=== PATIENT | male | born 1960 | race Caucasian/White ===

== ENCOUNTER 2017-02-26 08:27 | Emergency (ER) | payer BC ==
--- NOTE | 2017-02-26 08:48 | EDM.PDOC ---
ED HPI GENERAL MEDICAL PROBLEM - General Chief Complaint: Head Injury Stated Complaint: PATIENT HIT HIS HEAD Time Seen by Provider: 02/26/17 09:10 Source of Information: Reports: Patient History Limitations: Reports: No limitations - History of Present Illness INITIAL COMMENTS - FREE TEXT/NARRATIVE: History of present illness: [] Patient was transferred to the emergency room by Dr. Slaughter after evaluation. Patient fell one week ago after tripping over a pallet and hitting his head and face. He had a loss of consciousness and unknown period of time. He has flattening of his zygoma, headaches, visual changes and nausea. Review of systems: As per history of present illness and below otherwise all systems reviewed and negative. Past medical history: As per history of present illness and as reviewed below otherwise noncontributory. Surgical history: As per history of present illness and as reviewed below otherwise noncontributory. Social history: No reported history of drug or alcohol abuse. Family history: As per history of present illness and as reviewed below otherwise noncontributory. Physical exam: General: Well developed, well nourished in NAD HEENT: Atraumatic, normocephalic, pupils reactive, negative for conjunctival pallor or scleral icterus, mucous membranes moist, throat clear, neck supple, nontender, trachea midline. Lungs: Clear to auscultation, breath sounds equal bilaterally, chest nontender. Heart: S1S2, regular, negative for clicks, rubs, or JVD. Abdomen: Soft, nondistended, nontender. Negative for masses or hepatosplenomegaly. Negative for costovertebral tenderness. Pelvis: Stable nontender. Genitourinary: Deferred. Rectal: Deferred. Extremities: Atraumatic, negative for cords or calf pain. Neurovascular unremarkable. Neuro: Awake, alert, oriented. Cranial nerves II through XII unremarkable. Cerebellum unremarkable. Motor and sensory unremarkable throughout. Exam nonfocal. Diagnostics: [] CT head and face shows orbital wall fractures with muscle entrapment. zygomatic arch fracture Therapeutics: [] Impression: [] Orbital wall with muscle entrapment and zygoma fracture on the left Plan: [] Followup Dr. Prakash, call to make an appointment at [phone] Definitive disposition and diagnosis as appropriate pending reevaluation and review of above. Left Face Pain Score (Numeric/FACES): 4 - Related Data Allergies Allergy/AdvReac Type Severity Reaction Status Date / Time No Known Allergies Allergy Verified 02/26/17 08:34 Home Meds: Home Meds Zolpidem Tartrate 1 tab PO BEDTIME 11/08/15 [History] Past Medical History HEENT History: Reports: Impaired vision Other HEENT History: wears glasses/ has upper dentures Other Respiratory History: hx of smoking x 30 years Gastrointestinal History: Reports: Hepatitis, Other (see below) Other Gastrointestinal History: hx of hepatitis C, states he had a liver bx , no results yet. hx of partial colectomy Musculoskeletal History: Reports: Arthritis, Back pain, chronic - Past Surgical History GI Surgical History: Reports: Colon Other GI Surgeries/Procedures: hx of partial colectomy Other Musculoskeletal Surgeries/Procedures:: hx of "discs removed from lower back". HX of fx toes, hx of reattachment of finger Social & Family History - Tobacco Use Smoking Status *Q: Current Every Day Smoker Years of Tobacco use: 20 Packs/Tins Daily: 0.4 - Recreational Drug Use Recreational Drug Use: No Drug Use in Last 12 Months: No ED ROS GENERAL - Review of Systems Review Of Systems: See Below (See history of present illness) ED EXAM, HEAD INJURY - Physical Exam Exam: See Below (See history of present illness) Course - Vital Signs Last Recorded V/S: Last Vital Signs Temp 36.6 C 02/26/17 08:34 Pulse 75 02/26/17 08:34 Resp 16 02/26/17 08:34 BP 141/79 H 02/26/17 08:34 Pulse Ox 96 02/26/17 08:34 Departure - Departure Time of Disposition: 11:14 Disposition: Home, Self-Care 01 Condition: good Clinical Impression: Orbital wall fracture Qualifiers: Encounter type: initial encounter Fracture type: closed Qualified Code(s): S02.80XA - Fracture of other specified skull and facial bones, unspecified side , initial encounter for closed fracture Zygoma fracture Qualifiers: Encounter type: initial encounter Fracture type: closed Laterality: left Qualified Code(s): S02.40FA - Zygomatic fracture, left side, initial encounter for closed fracture - Discharge Information Forms: ED Department Discharge Additional Instructions: The following information is given to patients seen in the emergency department who are being discharged to home. This information is to outline your options for follow-up care. We provide all patients seen in our emergency department with a follow-up referral. The need for follow-up, as well as the timing and circumstances, are variable depending upon the specifics of your emergency department visit. If you don't have a primary care physician on staff, we will provide you with a referral. We always advise you to contact your personal physician following an emergency department visit to inform them of the circumstance of the visit and for follow-up with them and/or the need for any referrals to a consulting specialist. The emergency department will also refer you to a specialist when appropriate. This referral assures that you have the opportunity for follow-up care with a specialist. All of these measure are taken in an effort to provide you with optimal care, which includes your follow-up. Under all circumstances we always encourage you to contact your private physician who remains a resource for coordinating your care. When calling for follow-up care, please make the office aware that this follow-up is from your recent emergency room visit. If for any reason you are refused follow-up, please contact the [facility] Emergency Department at and asked to speak to the emergency department charge nurse. Followup with , call for appointment today at [phone]. Return if any symptoms change or worsen.
--- NOTE | 2017-02-26 10:40 | CT ---
EXAMINATION: Non contrast CT head and facial bones. Coronal and sagittal reformats. HISTORY: Fall FINDINGS: Head: No evidence of intra or extra axial hemorrhage, mass, midline shift, hydrocephalus or edema. Mild periventricular and subcortical white matter hypodensities. No hypoattenuation changes in the m ajor vascular territories to suggest acute infarct. No abnormal intracranial calcifications are det ected. No evidence of substantial vascular calcifications. Pituitary fossa appears unremarkable. The calvarium is intact. No evidence of skull fracture. Facial bones: There is a comminuted impacted left zygomaticomaxillary fracture. There is impression of fragments into the maxillary sinus with hemorrhage within the left maxillary sinus. There is als o impaction of the left lateral orbital wall/zygomatic junction into the lateral aspect of the orbit . This likely represents impingement on the underlying ocular musculature. There is no evidence of i ntraorbital hemorrhage. There is a mildly displaced fracture along the inferior orbital wall without herniation of intraorbital structures. The lamina papyracea appear intact. The mandible and maxilla appear intact. There is mucosal thickening within the right maxillary sinus. There is mild rightwar d deviation of the nasal septum. The nasal bones appear intact. The mastoid air cells and middle ear s are clear. The pterygoid plates are intact. IMPRESSION: 1. Comminuted and displaced left zygomaticomaxillary fracture with impression of the lateral orbital wall into the lateral aspect of the orbit. This likely causes impingement on the underlying lateral rectus musculature. 2. Fractures are noted along the infraorbital wall and lateral maxillary wall. No herniation of intr aorbital structures. 3. Hemorrhage within the left maxillary sinus. 4. Mild small vessel ischemic changes. 5. No acute intracranial findings.
[2017-02-26 11:37] VITALS: BP 132/78
== END 2017-02-26 11:35 | disposition home or self-care (01) ==
LOC: MW.ED 08:27
DX: S02.82XA Fracture of other specified skull and facial bones, left side, initial encounter for closed fracture (principal); S02.40FA Zygomatic fracture, left side, initial encounter for closed fracture; M19.90 Unspecified osteoarthritis, unspecified site; F17.210 Nicotine dependence, cigarettes, uncomplicated; W18.09XA Striking against other object with subsequent fall, initial encounter
CPT/HCPCS: 70450; 70450-26; 70486; 70486-26; 99283; 99283-25

== ENCOUNTER 2017-03-05 10:56 | Day surgery (SDC) | payer BC ==
[~2017-03-05 10:56] MED LIST: Bupivacaine 0.25%/EPINEPHrine 1:200,000 10 ML SDV INJECT ONE; Bupivacaine 0.25%/EPINEPHrine 1:200,000 10 ML SDV ONE; Dexamethasone/Tobramycin 0.1-0.3% Ophth Oint 3.5 GM Tube EYEBOTH SCH; Lactated Ringers 1,000 ML IV SCH
[2017-03-05] MEDS ORDERED: ceFAZolin 2 GM in Premix Bag 1 BAG IV ONE (11:00)
[2017-03-05] MEDS ORDERED: Gelatin Sponge,Absorbable 12-7 mm Sponge TOP ONE (11:34)
--- NOTE | 2017-03-05 11:58 | PCM.PREANE ---
Preanesthetic Assessment - Anesthesia/Transfusion/Family Hx Anesthesia History: Prior Anesthesia Without Reaction Family History of Anesthesia Reaction: No Transfusion History: No Prior Transfusion(s) Intubation History: Unknown - Review of Systems General: No Symptoms Pulmonary: No Symptoms Cardiovascular: No Symptoms Gastrointestinal: No symptoms Neurological: No Symptoms Other: Reports: None - Physical Assessment NPO Status Date: 03/05/17 NPO Status Time: 05:00 O2 Sat by Pulse Oximetry: 97 Respiratory Rate: 16 Vital Signs: Last Vital Signs Temp 37.0 C 03/05/17 11:12 Pulse 71 03/05/17 11:12 Resp 16 03/05/17 11:12 BP 140/82 03/05/17 11:12 Pulse Ox 97 03/05/17 11:12 Height: 1.68 m Weight: 68.039 kg ASA Class: 2 Mental Status: Alert & Oriented x3 Airway Class: Mallampati = 2 Dentition: Reports: Dentures (upper) Thyro-Mental Finger Breadths: 3 Mouth Opening Finger Breadths: 2 ROM/Head Extension: Full Lungs: Clear to auscultation, Normal respiratory effort Cardiovascular: Regular Rate, Regular Rhythm - Allergies Allergies/Adverse Reactions: Allergies Allergy/AdvReac Type Severity Reaction Status Date / Time No Known Allergies Allergy Verified 02/26/17 08:34 - Blood Blood Available: No - Anesthesia Plan Pre-Op Medication Ordered: None - Acknowledgements Anesthesia Type Planned: General Anesthesia Pt an Appropriate Candidate for the Planned Anesthesia: Yes Alternatives and Risks of Anesthesia Discussed w Pt/Guardian: Yes Pt/Guardian Understands and Agrees with Anesthesia Plan: Yes PreAnesthesia Questionnaire HEENT History: Reports: Impaired Vision Other HEENT History: wears glasses/ has upper dentures, presently has orbital fx Other Respiratory History: hx of smoking x 30 years Gastrointestinal History: Reports: Hepatitis, Other (See Below) Other Gastrointestinal History: hx of hepatitis C, (states has been treated for this) hx of partial colectomy, Musculoskeletal History: Reports: Arthritis, Back Pain, Chronic Other Musculoskeletal History: occasional back pain in the mornings Neurological History: Reports: None Psychiatric History: - Infectious Disease History Infectious Disease History: Reports: Hepatitis C - Past Surgical History Head Surgeries/Procedures: Reports: None GI Surgical History: Reports: Colon, Hernia, Inguinal Other GI Surgeries/Procedures: hx of partial colectomy Neurological Surgical History: Reports: Lumbar Spine Other Neurological Surgeries/Procedures: hx back surgery Musculoskeletal Surgical History: Reports: Arthroscopic Procedure (left shoulder ) Other Musculoskeletal Surgeries/Procedures:: hx of "discs removed from lower back". HX of fx toes, hx of reattachment of finger - SUBSTANCE USE Smoking Status *Q: Current Every Day Smoker (down to 1/2 ppd) Tobacco Use Within Last Twelve Months: Cigarettes Second Hand Smoke Exposure: Yes Days Per Week of Alcohol Use: 2 Number of Drinks Per Day: 6 Total Drinks Per Week: 12 Recreational Drug Use History: No - HOME MEDS Home Medications: Home Meds Zolpidem Tartrate 1 tab PO BEDTIME 11/08/15 [History] Amoxicillin/Potassium Clav [Amox-Clav 875-125 mg Tablet] 1 tab PO BID 03/03/17 [ History] Hydrocodone/Acetaminophen [Hydrocodon-Acetaminophen 5-325] 1 tab PO ASDIRECTED PRN 03/03/17 [History] - CURRENT (IN HOUSE) MEDS Current Meds: Current Medications Hydrocodone Bitart/Acetaminophen ([place] 325-5 Mg) 1 tab PO Q4H PRN PRN Reason: Pain Bacitracin (Bacitracin Oint) 1 gm TOP TID HECTOR Diphenhydramine HCl (Benadryl) 25 mg PO Q4H PRN PRN Reason: Itching Lactated Ringer's (Ringers, Lactated) 1,000 mls @ 125 mls/hr IV ASDIRECTED HECTOR Last Admin: 03/05/17 11:14 Dose: 125 mls/hr Ibuprofen (Motrin) 800 mg PO Q6H PRN PRN Reason: Pain Ondansetron HCl (Zofran) 4 mg IVPUSH Q6H PRN PRN Reason: Nausea/Vomiting Tobramycin/Dexamethasone (Tobradex Ophth Oint) 1 gm EYEBOTH Q4H [facility] Discontinued Medications Bacitracin (Bacitracin Ophth Oint) Confirm Administered Dose 3.5 gm .ROUTE .STK- MED ONE Stop: 03/05/17 11:35 Bupivacaine HCl/Epinephrine Bitart (Marcaine 0.25%/Epinephrine 1:200,000) 20 ml INJECT ONETIME ONE Stop: 03/05/17 08:57 Bupivacaine HCl/Epinephrine Bitart (Marcaine 0.25%/Epinephrine 1:200,000) Confirm Administered Dose 60 ml .ROUTE .STK-MED ONE Stop: 03/05/17 07:21 Gelatin (Gelfoam 12-7 Mm) Confirm Administered Dose 1 each TOP .STK-MED ONE Stop: 03/05/17 11:35 Cefazolin Sodium/Dextrose 2 gm (/ Premix) 50 mls @ 100 mls/hr IV ONETIME ONE Stop: 03/05/17 11:29
[2017-03-05] MEDS ORDERED: diphenhydrAMINE 25 MG Cap PO PRN (12:00)
[2017-03-05] MEDS ORDERED: Rocuronium 10 MG/ML 10 ML Syringe ONE (12:45)
[2017-03-05] MEDS ORDERED: Ondansetron 4 MG/2 ML SDV ONE ×3 (12:45→16:04)
[2017-03-05] MEDS ORDERED: Propofol 200 MG/20 ML SDV ONE (12:45)
[2017-03-05] MEDS ORDERED: Lidocaine 2% 5 ML SDV ONE (12:45)
[2017-03-05] MEDS ORDERED: Neostigmine Methylsulfate 1 MG/ML 5 ML Syringe ONE (12:45)
[2017-03-05] MEDS ORDERED: fentaNYL 250 MCG/5 ML SDV ONE ×2 (12:46→14:35)
[2017-03-05] MEDS ORDERED: Midazolam 1 MG/ML 2 ML SDV ONE (12:46)
[2017-03-05] MEDS ORDERED: Sodium Chloride 0.9% 20 ML ONE (12:48)
[2017-03-05] MEDS ORDERED: ceFAZolin 1 GM Vial ONE (12:48)
[2017-03-05] MEDS ORDERED: Succinylcholine/Normal Saline 200 MG/10 ML Syringe ONE (14:03)
[2017-03-05] MEDS ORDERED: Mineral Oil/Petrolatum Ophth Oint 3.5 GM Tube ONE (14:11)
[2017-03-05] MEDS ORDERED: Phenylephrine/Normal Saline 100 MCG/ML 10 ML Syringe ONE (14:17)
[2017-03-05] MEDS ORDERED: ePHEDrine 50 MG/ML SDV ONE (14:21)
[2017-03-05] MEDS ORDERED: fentaNYL 100 MCG/2 ML SDV IVPUSH PRN ×2 (14:37→16:28)
[2017-03-05] MEDS ORDERED: Dexamethasone/Tobramycin 0.1-0.3% Ophth Oint 3.5 GM Tube ONE (14:56)
[2017-03-05] MEDS ORDERED: HYDROmorphone 2 MG/ML Syringe ONE (15:32)
[2017-03-05] MEDS ORDERED: Labetalol 5 MG/ML 5 ML Syringe ONE (16:48)
[2017-03-05] MEDS: HYDROmorphone 2 MG/ML Syringe IVPUSH ONE ×2 (16:55→17:00)
--- NOTE | 2017-03-05 17:18 | PCM.POSTAN ---
POST ANESTHESIA ASSESSMENT - MENTAL STATUS Mental Status: alert, oriented - RESPIRATORY Respiratory Status: respiratory rate WNL, airway patent, O2 saturation stable, supplemental oxygen (O2) Free Text/Narrative:: O2 via nasal canula - CARDIOVASCULAR CV Status: pulse rate WNL, blood pressure stable - GASTROINTESTINAL GI Status: no symptoms - PAIN Pain Score: 4 - POST OP HYDRATION Hydration Status: adequate & stable - OBSERVATIONS Free Text/Narrative:: admit for pain control
--- NOTE | 2017-03-05 17:20 | PCM.OPNOTE ---
- General Post-Op/Procedure Note Date of Surgery/Procedure: 03/05/17 Operative Procedure(s): open reduction internal fixation of left ZMC fracture ( lateral orbit, orbital floor and rim, maxillary buttress) Pre Op Diagnosis: Left ZMC fracture Post-Op Diagnosis: Same Anesthesia Technique: General ET tube, Local Primary Surgeon: Charley Kohler Seamless Tube Drawer: Randi Juarez Complications: None Condition: Good
[2017-03-05] MEDS: Acetaminophen/HYDROcodone 325-5 MG Tab PO PRN ×2 (18:50→22:51)
[2017-03-05] MEDS: Ondansetron 4 MG/2 ML SDV IVPUSH PRN (19:14)
[2017-03-05] MEDS: Ibuprofen 800 MG Tab PO PRN (20:03)
[2017-03-05] MEDS: Bacitracin Oint 28.35 GM Tube TOP SCH (21:25)
[2017-03-05] MEDS ORDERED: Acetaminophen/HYDROcodone 325-5 MG Tab PO PRN (22:53)
[2017-03-06] MEDS: Ibuprofen 800 MG Tab PO PRN (02:16)
[2017-03-06] MEDS: Ondansetron 4 MG/2 ML SDV IVPUSH PRN (05:25)
[2017-03-06] MEDS: Bacitracin Oint 28.35 GM Tube TOP SCH (05:27)
--- NOTE | 2017-03-06 07:02 | PCM48HPAN ---
Post Anesthesia Note - EVALUATION WITHIN 48HRS OF ANESTHETIC Vital Signs in Normal Range: Yes Patient Participated in Evaluation: Yes Respiratory Function Stable: Yes Airway Patent: Yes Cardiovascular Function Stable: Yes Hydration Status Stable: Yes Pain Control Satisfactory: Yes Nausea and Vomiting Control Satisfactory: Yes Mental Status Recovered: Yes
[2017-03-06 08:01] VITALS: BP 133/64
--- NOTE | 2017-03-06 08:34 | PCM.PN ---
- General Info Date of Service: 03/06/17 Admission Dx/Problem (Free Text): s/p ZMC fracture ORIF - POD 1 Not taking much for meds this am due to upset stomach. Didn't have much for dinner last night because kitchen was closed after 9pm. Otherwise eating now and feeling ok. Functional Status: Reports: pain controlled, tolerating diet, ambulating, urinating Pain Score: 5 - Review of Systems General: Reports: No Symptoms HEENT: Reports: no symptoms Pulmonary: Reports: no symptoms Gastrointestinal: Reports: Nausea. Denies: Vomiting Skin: Reports: bruising Neurological: Reports: No Symptoms - Patient Data Vitals - most recent: Last Vital Signs Temp 97.9 F 03/06/17 08:00 Pulse 52 L 03/06/17 08:00 Resp 18 03/06/17 08:00 BP 133/64 03/06/17 08:00 Pulse Ox 93 L 03/06/17 08:00 Weight - most recent: 150 lb I&O - last 24 hours: Intake & Output 03/05/17 03/06/17 03/06/17 23:59 07:59 15:59 Intake Total 2100 1080 Output Total 125 Balance 2100 955 Med Orders - Current: Current Medications Hydrocodone Bitart/Acetaminophen ([place] 325-5 Mg) 1 - 2 tab PO Q4H PRN PRN Reason: Pain Last Admin: 03/06/17 02:52 Dose: 2 tab Bacitracin (Bacitracin Oint) 1 gm TOP TID HECTOR Last Admin: 03/06/17 05:27 Dose: 1 applic Diphenhydramine HCl (Benadryl) 25 mg PO Q4H PRN PRN Reason: Itching Fentanyl (Sublimaze) 50 mcg IVPUSH Q5M PRN PRN Reason: Pain (severe 7-10) Stop: 03/06/17 14:37 Fentanyl (Sublimaze) 50 mcg IVPUSH Q5M PRN PRN Reason: Pain (severe 7-10) Stop: 03/06/17 16:28 Ibuprofen (Motrin) 800 mg PO Q6H PRN PRN Reason: Pain Last Admin: 03/06/17 02:16 Dose: 800 mg Ondansetron HCl (Zofran) 4 mg IVPUSH Q6H PRN PRN Reason: Nausea/Vomiting Last Admin: 03/06/17 05:25 Dose: 4 mg Tobramycin/Dexamethasone (Tobradex Ophth Oint) 1 gm EYEBOTH Q4H [facility] Last Admin: 03/05/17 21:17 Dose: Not Given Discontinued Medications Hydrocodone Bitart/Acetaminophen ([place] 325-5 Mg) 1 tab PO Q4H PRN PRN Reason: Pain Last Admin: 03/05/17 22:51 Dose: 2 tab Bacitracin (Bacitracin Ophth Oint) Confirm Administered Dose 3.5 gm .ROUTE .STK- MED ONE Stop: 03/05/17 11:35 Bupivacaine HCl/Epinephrine Bitart (Marcaine 0.25%/Epinephrine 1:200,000) 20 ml INJECT ONETIME ONE Stop: 03/05/17 08:57 Bupivacaine HCl/Epinephrine Bitart (Marcaine 0.25%/Epinephrine 1:200,000) Confirm Administered Dose 60 ml .ROUTE .STK-MED ONE Stop: 03/05/17 07:21 Cefazolin Sodium (Ancef) Confirm Administered Dose 2 gm .ROUTE .STK-MED ONE Stop: 03/05/17 12:49 Ephedrine Sulfate (Ephedrine Sulfate) Confirm Administered Dose 50 mg .ROUTE .STK-MED ONE Stop: 03/05/17 14:22 Fentanyl (Sublimaze) Confirm Administered Dose 250 mcg .ROUTE .STK-MED ONE Stop: 03/05/17 12:47 Fentanyl (Sublimaze) Confirm Administered Dose 250 mcg .ROUTE .STK-MED ONE Stop: 03/05/17 14:36 Gelatin (Gelfoam 12-7 Mm) Confirm Administered Dose 1 each TOP .STK-MED ONE Stop: 03/05/17 11:35 Glycopyrrolate () Confirm Administered Dose 1 mg .ROUTE .STK-MED ONE Stop: 03/05/17 12:46 Hydromorphone HCl (Dilaudid) Confirm Administered Dose 2 mg .ROUTE .STK-MED ONE Stop: 03/05/17 15:33 Hydromorphone HCl (Dilaudid) 0 mg IVPUSH ONETIME ONE Stop: 03/05/17 16:29 Last Admin: 03/05/17 17:00 Dose: 1 mg Lactated Ringer's (Ringers, Lactated) 1,000 mls @ 125 mls/hr IV ASDIRECTED [facility] Last Admin: 03/05/17 11:14 Dose: 125 mls/hr Cefazolin Sodium/Dextrose 2 gm (/ Premix) 50 mls @ 100 mls/hr IV ONETIME ONE Stop: 03/05/17 11:29 Last Admin: 03/05/17 21:43 Dose: Not Given Sodium Chloride (Normal Saline) Confirm Administered Dose 20 mls @ as directed .ROUTE .STK-MED ONE Stop: 03/05/17 12:49 Labetalol HCl (Normodyne) Confirm Administered Dose 25 mg .ROUTE .STK-MED ONE Stop: 03/05/17 16:49 Lidocaine (Xylocaine-Mpf 2%) Confirm Administered Dose 5 ml .ROUTE .STK-MED ONE Stop: 03/05/17 12:46 Midazolam HCl (Versed 1 Mg/Ml) Confirm Administered Dose 2 mg .ROUTE .STK-MED ONE Stop: 03/05/17 12:47 Mineral Oil/White Petrolatum (Lacri-Lube S.O.P Oint) Confirm Administered Dose 3.5 gm .ROUTE .STK-MED ONE Stop: 03/05/17 14:12 Neostigmine Methylsulfate (Neostigmine) Confirm Administered Dose 5 mg .ROUTE .STK-MED ONE Stop: 03/05/17 12:46 Ondansetron HCl (Zofran) Confirm Administered Dose 4 mg .ROUTE .STK-MED ONE Stop: 03/05/17 12:46 Ondansetron HCl (Zofran) Confirm Administered Dose 4 mg .ROUTE .STK-MED ONE Stop: 03/05/17 14:54 Ondansetron HCl (Zofran) Confirm Administered Dose 4 mg .ROUTE .STK-MED ONE Stop: 03/05/17 16:05 Phenylephrine HCl (Phenylephrine In Ns 100 Mcg/Ml) Confirm Administered Dose 1 mg .ROUTE .STK-MED ONE Stop: 03/05/17 14:18 Propofol (Diprivan 20 Ml) Confirm Administered Dose 200 mg .ROUTE .STK-MED ONE Stop: 03/05/17 12:46 Rocuronium [place] (Zemuron) Confirm Administered Dose 100 mg .ROUTE .STK-MED ONE Stop: 03/05/17 12:46 Succinylcholine Chloride (Succinylcholine In Ns Pf) Confirm Administered Dose 200 mg .ROUTE .STK-MED ONE Stop: 03/05/17 14:04 Tobramycin/Dexamethasone (Tobradex Ophth Oint) Confirm Administered Dose 3.5 gm .ROUTE .STK-MED ONE Stop: 03/05/17 14:57 - Exam General: alert, oriented, cooperative HEENT: Pupils equal, Pupils reactive, EOMI, Other (left eye swelling and eye is slightly higher than the right. Otherwise EOM intact wihtout any signs of entrapment. ) Lungs: Clear to auscultation Cardiovascular: Regular Rate, Regular Rhythm Abdomen: soft Extremities: no edema Skin: warm, dry Wound/Incisions: healing well, dressing dry and intact, no drainage Neurological: no new focal deficit Psy/Mental Status: alert, normal affect - Problem List & Annotations (1) Orbital wall fracture SNOMED Code(s): 20652843 Code(s): S02.80XA - FX OTH SKULL AND FACIAL BONES, UNSPECIFIED SIDE, INIT Status: Acute Current Visit: No Qualifiers: Encounter type: initial encounter Fracture type: closed Qualified Code(s) : S02.80XA - Fracture of other specified skull and facial bones, unspecified side, initial encounter for closed fracture (2) Zygoma fracture SNOMED Code(s): 456501332 Code(s): S02.402A - ZYGOMATIC FRACTURE, UNSPECIFIED SIDE, INIT Status: Acute Current Visit: No Qualifiers: Encounter type: initial encounter Fracture type: closed Laterality: left Qualified Code(s): S02.40FA - Zygomatic fracture, left side, initial encounter for closed fracture - Problem List Review Problem List Initiated/Reviewed/Updated: Yes - My Orders Last 24 Hours: My Active Orders 03/05/17 08:00 Bacitracin [Bacitracin Oint] 1 gm TOP TID 03/05/17 08:56 Patient Status [ADT] Routine Ibuprofen [Motrin] 800 mg PO Q6H PRN Sequential Compression Device [OM.PC] Routine 03/05/17 08:59 Antiembolic Devices [RC] PER UNIT ROUTINE 03/05/17 09:00 Dexamethasone/Tobramycin [Tobradex Ophth Oint] 1 gm EYEBOTH Q4H 03/05/17 11:00 Ondansetron [Zofran] 4 mg IVPUSH Q6H PRN 03/05/17 12:00 diphenhydrAMINE [Benadryl] 25 mg PO Q4H PRN 03/05/17 17:22 Cooling Warming Measures [RC] ASDIRECTED Ice Pack [Ice Therapy] [OM.PC] Routine 03/05/17 18:00 Communication Order [RC] DAILY 03/05/17 22:53 Acetaminophen/HYDROcodone [[place] 325-5 MG] 1 - 2 tab PO Q4H PRN 03/05/17 Dinner General [Regular Diet] [DIET] 03/06/17 08:30 Ready for Discharge [RC] PER UNIT ROUTINE - Assessment Assessment:: POD 1 healing as expected from ZMC reduction and fixation on the left. - Plan Plan:: home today. Oral antibiotics. Oral pain medication. Resume home meds. Instructions and activity as per discharge instructions. No driving while taking narcotics. Follow up Friday for suture removal.
--- NOTE | 2017-03-11 06:08 | OR ---
SURGEON: JESSICA NDIAYE MD DATE OF PROCEDURE: PREOPERATIVE DIAGNOSIS: Left ZMC fracture. POSTOPERATIVE DIAGNOSIS: Left ZMC fracture. PROCEDURE: Open reduction and internal fixation of left zygomatic maxillary complex fracture with plate fixation of the lateral orbital floor and rim and maxillary buttress. MANUFACTURING TECHNOLOGY ANALYST: Randi Juarez PA-C. ANESTHESIA: General ET tube with local anesthesia augmentation. INDICATIONS: Mr. Chanel is a 56-year-old gentleman, who unfortunately had a fall and he has an impacted left zygomaticomaxillary complex fracture. Risks and benefits of repair were discussed with him. He had a delayed presentation and thus we discussed the inability to obtain complete reduction if the fracture segment move appropriately. He understands this. There are no signs of entrapment though the lateral rectus muscle is very close to the lateral fracture. He is able to move his eyes in all directions, but he does have significant diplopia with superior and inferior gaze. We discussed risks and benefits, and I do think it is better for him considering the significant amount of infection that he would have this reduced at this time. He was in agreement to proceed. Risks were including, but not limited to, bleeding, infection, damage to underlying or overlying structures, possible need for future interventions and possible scarring and possible continued visual strip disturbances. He would like to proceed. PROCEDURE IN DETAIL: After informed consent was obtained and placed on the chart, the patient was brought to the operating theater and laid in the position. After adequate general anesthetic was obtained, the area was prepped and draped in a normal fashion. A time-out was completed to confirm side and site. Attention was then paid to the lateral orbital rim incision. This was made dissecting down onto the orbital rim using a 15 blade first through the skin and then spreading through the subcutaneous tissue. The lateral orbit was located and the two fracture segments were reduced using a bone clamp. A Argueta Cole screw was placed in the zygoma using a stab incision in order to augment our reduction. Once this was completed, an appropriate reduction was appreciated to the lateral orbit and lateral orbital ball; a upper midface curved 10- hole curved plate from the [email or web address] midface set was placed, [id number] and self drilling screws were used to secure this in place. Once this was secured attention was then paid to the left orbital floor and orbital rim. A mid lid incision was made dissected stairstep through the muscle and the rim was then located taking care not to disrupt the septum. Subperiosteal dissection was then carried onto the zygomatic refusing to the orbital rim and the fracture segment was located medially. Using direct visualization and the Argueta Cole screw appropriate reduction was appreciated here. The orbital floor had a small gap and thus a [employer] Titan surgical implant 3D orbital floor left small plate, reference number 66260, lot number [id number], was then placed at appropriate contour in the orbital floor and rim. Self-drilling 3 and 4 mm screws were placed to secure this in position. Once adequately secured and contoured, attention was paid to copiously irrigation of both the lateral orbital rim incision and the orbital floor incision and the orbital floor was closed using deep Monocryl stitches for the periosteum and muscle in a running 5-0 Prolene for the skin. The lateral orbital rim was then closed using 4-0 Monocryl stitches using for the deep layers of muscle and then a 5-0 Prolene for the skin. These were both copiously irrigated prior to closure. Attention was then paid to the maxillary buttress and intraoral incision was completed in the superior gingival buccal sulcus. The maxillary buttress was reapproximated and had a step-off approximately 1 mm. We could not obtain better reduction of the zygomaticomaxillary complex fracture segment and thus this was deemed acceptable. An L shaped upper midface 8-hole plate was placed with one screw distally and three screws proximally procedure is position using the self tapping screw. Once this was secured, attention was then paid to copious irrigation of the area sucking out of the sinus using suction and then closure of the intraoral incision using deep Monocryl stitches and a watertight closure using a 5-0 chromic stitch in the gingival buccal sulcus. He tolerated this well. All counts and needles were correct at the end of the case and each wound was dressed with antibiotic ointment. The patient tolerated this well and will be maintained in the hospital for close followup. The orbital muscles were placed in traction in all directions and ensured that there was no entrapment. FOLLOWUP INSTRUCTIONS: The patient will stay in the hospital overnight and will be monitored closely. HEGGTHE / MODL /[id number] JOSE A
== END 2017-03-06 08:55 | disposition home or self-care (01) ==
LOC: MW.SDS 10:56 → MW.MS 17:41 → MW.SDS 03-06 08:55
PROVIDERS: ATTEND Plastic Surgery
DX: S02.40FA Zygomatic fracture, left side, initial encounter for closed fracture (principal); S02.80XA Fracture of other specified skull and facial bones, unspecified side, initial encounter for closed fracture; M19.90 Unspecified osteoarthritis, unspecified site; G89.29 Other chronic pain; M54.9 Dorsalgia, unspecified; M75.101 Unspecified rotator cuff tear or rupture of right shoulder, not specified as traumatic; F17.210 Nicotine dependence, cigarettes, uncomplicated; G47.00 Insomnia, unspecified; Z79.899 Other long term (current) drug therapy; Z90.49 Acquired absence of other specified parts of digestive tract; Z98.890 Other specified postprocedural states; X58.XXXA Exposure to other specified factors, initial encounter
CPT/HCPCS: 21365; A9270; C1713; J0690; J1170; J2250; J2405; J3010; J7120; 00190; J2704

== ENCOUNTER 2017-06-11 06:37 | Day surgery (SDC) | payer BC ==
--- NOTE | 2017-06-11 07:09 | PCM.PREANE ---
Preanesthetic Assessment - Anesthesia/Transfusion/Family Hx Anesthesia History: Prior Anesthesia Without Reaction Family History of Anesthesia Reaction: No Transfusion History: No Prior Transfusion(s) Intubation History: Unknown - Review of Systems General: No Symptoms Pulmonary: No Symptoms Cardiovascular: No Symptoms Gastrointestinal: No Symptoms Neurological: No Symptoms Other: Reports: None - Physical Assessment Height: 1.68 m Weight: 68.039 kg ASA Class: 3 Mental Status: Alert & Oriented x3 Airway Class: Mallampati = 2 Dentition: Reports: Dentures (upper) Thyro-Mental Finger Breadths: 3 Mouth Opening Finger Breadths: 2 ROM/Head Extension: Limited/Partial Lungs: Clear to Auscultation, Normal Respiratory Effort Cardiovascular: Regular Rate, Regular Rhythm - Allergies Allergies/Adverse Reactions: Allergies Allergy/AdvReac Type Severity Reaction Status Date / Time No Known Allergies Allergy Verified 02/26/17 08:34 - Blood Blood Available: No - Anesthesia Plan Pre-Op Medication Ordered: None - Acknowledgements Anesthesia Type Planned: General Anesthesia Pt an Appropriate Candidate for the Planned Anesthesia: Yes Alternatives and Risks of Anesthesia Discussed w Pt/Guardian: Yes Pt/Guardian Understands and Agrees with Anesthesia Plan: Yes PreAnesthesia Questionnaire HEENT History: Reports: Impaired Vision Other HEENT History: wears glasses/ has upper dentures, presently has orbital fx Other Respiratory History: hx of smoking x 30 years Gastrointestinal History: Reports: Hepatitis, Other (See Below) Other Gastrointestinal History: hx of hepatitis C, (states has been treated for this) hx of partial colectomy, Genitourinary History: Reports: None Musculoskeletal History: Reports: Arthritis, Back Pain, Chronic, Other (See Below) (s/p right rotator cuff repair) Other Musculoskeletal History: occasional back pain in the mornings Neurological History: Reports: Other (See Below) (insomnia) Psychiatric History: - Infectious Disease History Infectious Disease History: Reports: Hepatitis C - Past Surgical History HEENT Surgical History: Reports: Tonsillectomy, Other (See Below) (ORIF rt. zygomatic arch depressed fracture) GI Surgical History: Reports: Hernia Repair/Other, Other (See Below) (partial colectomy) Male Surgical History: Reports: Vasectomy Musculoskeletal Surgical History: Reports: Arthroscopic Procedure Other Musculoskeletal Surgeries/Procedures:: hx of "discs removed from lower back". HX of fx toes, hx of reattachment of finger - SUBSTANCE USE Smoking Status *Q: Current Every Day Smoker (down to one ppd) Tobacco Use Within Last Twelve Months: Cigarettes Second Hand Smoke Exposure: Yes Days Per Week of Alcohol Use: 2 Number of Drinks Per Day: 6 Total Drinks Per Week: 12 Recreational Drug Use History: No - HOME MEDS Home Medications: Home Meds Zolpidem Tartrate 1 tab PO BEDTIME 11/08/15 [History] - CURRENT (IN HOUSE) MEDS Current Meds: Current Medications Bupivacaine HCl/Epinephrine Bitart (Marcaine 0.25%/Epinephrine 1:200,000) 20 ml INJECT ONETIME ONE Stop: 06/11/17 08:01 Lactated Ringer's (Ringers, Lactated) 1,000 mls @ 125 mls/hr IV ASDIRECTED HECTOR Last Admin: 06/11/17 07:03 Dose: 125 mls/hr Cefazolin Sodium/Dextrose 2 gm (/ Premix) 50 mls @ 100 mls/hr IV ONETIME ONE Stop: 06/11/17 08:29
[2017-06-11] MEDS ORDERED: Propofol 200 MG/20 ML SDV ONE (07:15)
[2017-06-11] MEDS ORDERED: Midazolam 1 MG/ML 2 ML SDV ONE (07:15)
[2017-06-11] MEDS ORDERED: Ondansetron 4 MG/2 ML SDV ONE (07:15)
[2017-06-11] MEDS ORDERED: Bupivacaine 0.25%/EPINEPHrine 1:200,000 10 ML SDV ONE (07:15)
[2017-06-11] MEDS ORDERED: Lidocaine 2% 5 ML SDV ONE (07:15)
[2017-06-11] MEDS ORDERED: HYDROmorphone 2 MG/ML Syringe ONE (07:15)
[2017-06-11] MEDS ORDERED: fentaNYL 100 MCG/2 ML SDV ONE (07:15)
[2017-06-11] MEDS ORDERED: Bupivacaine 0.25%/EPINEPHrine 1:200,000 10 ML SDV INJECT ONE (08:00)
[2017-06-11] MEDS ORDERED: ceFAZolin 2 GM in Premix Bag 1 BAG IV ONE (08:00)
[2017-06-11] MEDS ORDERED: Lactated Ringers 1,000 ML IV SCH (08:00)
[2017-06-11] MEDS ORDERED: fentaNYL 100 MCG/2 ML SDV IVPUSH PRN (08:37)
[2017-06-11] MEDS ORDERED: Dexamethasone/Tobramycin 0.1-0.3% Ophth Oint 3.5 GM Tube ONE (09:11)
[2017-06-11] MEDS ORDERED: Phenylephrine/Normal Saline 100 MCG/ML 10 ML Syringe ONE (09:11)
[2017-06-11 11:12] VITALS: BP 140/84
--- NOTE | 2017-06-12 16:10 | PCM.OPNOTE ---
- General Post-Op/Procedure Note Date of Surgery/Procedure: 06/11/17 Operative Procedure(s): removal of left eye plates x 2 Pre Op Diagnosis: painful hardware left eye Post-Op Diagnosis: Same Anesthesia Technique: General LMA Primary Surgeon: Charley Kohler Tailer Out: Randi Juarez Complications: None Condition: Good Free Text/Narrative:: [id number]
--- NOTE | 2017-06-12 21:47 | OR ---
SURGEON: JESSICA NDIAYE MD DATE OF PROCEDURE: 06/11/2017 PREOPERATIVE DIAGNOSIS: Left orbital hardware causing pain. POSTOPERATIVE DIAGNOSIS: Left orbital hardware causing pain. PROCEDURE: Removal of left lateral orbital rim plate and left orbital floor plate due to pain. INDICATIONS: Mr. Jamie Chanel is a 56-year-old gentleman with an orbital floor plate and left orbital rim plate that are causing pain. Risks and benefits of removal were discussed with him and he is in agreement to proceed. Risks were including, but not limited to, bleeding, infection, damage to underlying or overlying structures, possible need for future interventions and possible scarring. PROCEDURE IN DETAIL: After informed consent was obtained and placed on the chart, the patient was brought to the operating theater and laid in supine position. After adequate local MAC anesthesia was obtained, the area was prepped draped in normal fashion and a time-out was completed to confirm side and site. Attention was then paid to the left lateral orbit incision and dissection was carried down through the skin and subcutaneous tissues using a knife and Bovie electrocautery. The plate was localized and the screws were removed. Plate was removed easily and these were sent for pathology. Meticulous hemostasis was obtained. The wound was closed using deep Monocryl stitches and a running 4-0 for the skin. This was dressed with Steri-Strips. Attention was then paid to the orbital floor plate and a subtarsal incision was made again through the previous incision and dissection was carried down stepwise through the muscle and septum in order to localize the plate. The plate was localized easily and freed with a [place] elevator and removed with minimal difficulty. There was some vascular ingrowth which was easily hemostased with Bovie electrocautery. Once adequate hemostasis was obtained, the wound was then closed in layered fashion with deep Monocryl stitches for the septum, Monocryl stitches for the muscle, and a running 4-0 Monocryl for the skin. He tolerated this well and this was dressed with the gauze dressing. The plates were sent for pathology and all counts and needles were correct at the end of the case. FOLLOWUP INSTRUCTIONS: The patient will see us in clinic in approximately 1 week, sooner if any problems, questions, or concerns. HEGGTSALAS / ARSH /[id number]
== END 2017-06-11 10:35 | disposition home or self-care (01) ==
LOC: MW.SDS 06:37
PROVIDERS: ATTEND Plastic Surgery
DX: T84.84XA Pain due to internal orthopedic prosthetic devices, implants and grafts, initial encounter (principal); S02.40FD Zygomatic fracture, left side, subsequent encounter for fracture with routine healing; Z79.899 Other long term (current) drug therapy; Z98.890 Other specified postprocedural states; Z90.49 Acquired absence of other specified parts of digestive tract; Z98.52 Vasectomy status; F17.200 Nicotine dependence, unspecified, uncomplicated; Z72.0 Tobacco use
CPT/HCPCS: 20680; A9270; J0690; J1170; J2250; J2405; J3010; J7120; 00103; 88300; J2704

== ENCOUNTER 2017-09-26 07:26 | Day surgery (SDC) | payer BC ==
[2017-09-26] MEDS ORDERED: Lactated Ringers 1,000 ML IV SCH (08:00)
[2017-09-26] MEDS ORDERED: Clindamycin Phosphate in D5W 600 MG in Premix Bag 1 BAG IV ONE ×2 (08:00)
[2017-09-26] MEDS ORDERED: Bupivacaine 0.25%/EPINEPHrine 1:200,000 10 ML SDV INJECT ONE (08:00)
--- NOTE | 2017-09-26 08:20 | PCM.PREANE ---
Preanesthetic Assessment - Anesthesia/Transfusion/Family Hx Anesthesia History: Prior Anesthesia Without Reaction Family History of Anesthesia Reaction: No Transfusion History: No Prior Transfusion(s) Intubation History: Unknown - Review of Systems General: No Symptoms Pulmonary: No Symptoms Cardiovascular: No Symptoms Gastrointestinal: No Symptoms Neurological: No Symptoms Other: Reports: None - Physical Assessment NPO Status Date: 09/25/17 O2 Sat by Pulse Oximetry: 96 Respiratory Rate: 16 Vital Signs: Last Vital Signs Temp 36.6 C 09/26/17 07:52 Pulse 77 09/26/17 07:52 Resp 16 09/26/17 07:52 BP 141/81 H 09/26/17 07:52 Pulse Ox 96 09/26/17 07:52 Height: 1.7 m Weight: 68.039 kg ASA Class: 2 Mental Status: Alert & Oriented x3 Airway Class: Mallampati = 1 Dentition: Reports: Dentures ROM/Head Extension: Full Lungs: Clear to Auscultation, Normal Respiratory Effort Cardiovascular: Regular Rate, Regular Rhythm - Allergies Allergies/Adverse Reactions: Allergies Allergy/AdvReac Type Severity Reaction Status Date / Time No Known Allergies Allergy Verified 02/26/17 08:34 - Acknowledgements Anesthesia Type Planned: General Anesthesia Pt an Appropriate Candidate for the Planned Anesthesia: Yes Alternatives and Risks of Anesthesia Discussed w Pt/Guardian: Yes Pt/Guardian Understands and Agrees with Anesthesia Plan: Yes PreAnesthesia Questionnaire HEENT History: Reports: Impaired Vision Other HEENT History: top denture, wears glasses Other Respiratory History: hx of smoking x 30 years Gastrointestinal History: Reports: Other (See Below) Other Gastrointestinal History: hx hepatitis C, states has been treated Genitourinary History: Reports: None Musculoskeletal History: Reports: Arthritis, Back Pain, Chronic, Other (See Below) Other Musculoskeletal History: occasional back pain in the mornings Neurological History: Reports: Concussion Psychiatric History: Endocrine/Metabolic History: Reports: None - Infectious Disease History Infectious Disease History: Reports: Hepatitis C - Past Surgical History HEENT Surgical History: Reports: Tonsillectomy, Other (See Below) Other HEENT Surgeries/Procedures: surgical tx of depressed zygomatic arch fx, GI Surgical History: Reports: Colon, Other (See Below) Other GI Surgeries/Procedures: hernia repair at the age of 8, hx of partial colectomy Male Surgical History: Reports: Vasectomy Neurological Surgical History: Reports: Lumbar Spine Other Neurological Surgeries/Procedures: hx back surgery Musculoskeletal Surgical History: Reports: Shoulder Surgery Other Musculoskeletal Surgeries/Procedures:: rotator cuff repair - SUBSTANCE USE Smoking Status *Q: Current Every Day Smoker Tobacco Use Within Last Twelve Months: Cigarettes Second Hand Smoke Exposure: Yes Days Per Week of Alcohol Use: 2 Number of Drinks Per Day: 6 Total Drinks Per Week: 12 Recreational Drug Use History: No - HOME MEDS Home Medications: Home Meds Zolpidem Tartrate 1 tab PO BEDTIME 11/08/15 [History] Gluc HCl/Csa/Jesús Hy/Hyalur Ac [Glucosamine Chondroitin] 1 tab PO DAILY [History] Multivitamin [Multivitamins] 1 tab PO DAILY 09/23/17 [History] - CURRENT (IN HOUSE) MEDS Current Meds: Current Medications Clindamycin Phosphate 600 mg/ (Premix) 50 mls @ 150 mls/hr IV ONETIME ONE Stop: 09/26/17 08:19 Last Admin: 09/26/17 07:51 Dose: 150 mls/hr Lactated Ringer's (Ringers, Lactated) 1,000 mls @ 125 mls/hr IV ASDIRECTED [facility] Last Admin: 09/26/17 07:50 Dose: 125 mls/hr Discontinued Medications Bupivacaine HCl/Epinephrine Bitart (Marcaine 0.25%/Epinephrine 1:200,000) 10 ml INJECT ONETIME ONE Stop: 09/26/17 08:01
[2017-09-26] MEDS ORDERED: Bupivacaine 25%/EPINEPHrine/PF 30 ML ONE (08:49)
[2017-09-26] MEDS ORDERED: Lidocaine 2% 5 ML SDV ONE (08:51)
[2017-09-26] MEDS ORDERED: Propofol 200 MG/20 ML SDV ONE (08:51)
[2017-09-26] MEDS ORDERED: fentaNYL 100 MCG/2 ML SDV ONE (08:52)
[2017-09-26] MEDS ORDERED: Midazolam 1 MG/ML 2 ML SDV ONE (08:52)
[2017-09-26] MEDS ORDERED: Rocuronium 10 MG/ML 10 ML Syringe ONE (09:01)
[2017-09-26] MEDS ORDERED: Neostigmine Methylsulfate 1 MG/ML 5 ML Syringe ONE (09:01)
[2017-09-26] MEDS ORDERED: Sugammadex Sodium 200 MG/2 ML VIAL ONE (09:47)
[2017-09-26] MEDS ORDERED: fentaNYL 100 MCG/2 ML SDV IVPUSH PRN (10:11)
--- NOTE | 2017-09-26 10:35 | PCM.POSTAN ---
POST ANESTHESIA ASSESSMENT - MENTAL STATUS Mental Status: Alert, Oriented - RESPIRATORY Respiratory Status: Respiratory Rate WNL, Airway Patent, O2 Saturation Stable - CARDIOVASCULAR CV Status: Pulse Rate WNL, Blood Pressure Stable - GASTROINTESTINAL GI Status: No Symptoms - POST OP HYDRATION Hydration Status: Adequate & Stable
[2017-09-26 12:07] VITALS: BP 113/61
--- NOTE | 2017-09-29 12:38 | PCM.OPNOTE ---
- General Post-Op/Procedure Note Date of Surgery/Procedure: 09/26/17 Operative Procedure(s): removal of left maxillary plate and screws Pre Op Diagnosis: removal of left maxillary plate and screws Post-Op Diagnosis: Same Anesthesia Technique: General ET Tube, Local Primary Surgeon: Charley Kohler Order Planner: Randi Juarez Reason Order Planner Was Necessary: retraction Complications: None Condition: Good
--- NOTE | 2017-10-09 19:24 | OR ---
SURGEON: JESSICA NDIAYE MD DATE OF PROCEDURE: 09/26/2017 PREOPERATIVE DIAGNOSIS: Left maxillary plate and screws pain. POSTOPERATIVE DIAGNOSIS: Left maxillary plate and screws pain. PROCEDURE: Removal of left maxillary plate and screws. PATIENT SITTER: KORI Sexton. REASON PATIENT SITTER WAS NECESSARY: Retraction, closure, and prepping of the patient. ANESTHESIA: General ET tube with local. INDICATIONS: Mr. Chanel is a 56-year-old gentleman seen today in evaluation for left maxillary plate and screws from the orbital ZMC fracture. He has done well with it. Unfortunately, it has continued to erode and cause pain where his dentures rub. Risks and benefits of removal were discussed, and he was in agreement to proceed. Risks were including, but not limited to, bleeding, infection, damage to underlying or overlying structures, possible need for future interventions, and possible scarring. PROCEDURE IN DETAIL: After informed consent was obtained and placed on the chart, the patient was brought to the operating theater and laid in a supine position. After adequate general anesthetic was obtained, the area was prepped and draped and a time-out was completed to confirm side and site. Attention was then paid to injection of local anesthesia and a small incision over the left maxillary plate and screws. Dissection was carried directly on top of this, down onto the bone through the subcutaneous tissues. Once this was reached, the screwdriver was used to retract and remove all of the screws. Once this was done, the plate was easily elevated and removed. These were sent for pathology. Once adequately sent, the area was irrigated and closed using 4-0 Monocryl stitches for the deep layer and 5-0 chromic stitches for the mucosa. This was closed in a watertight fashion and once adequately closed, the wounds were irrigated again, and the patient was transferred to the PACU in stable condition. FOLLOWUP INSTRUCTIONS: The patient will see us in clinic in 10 to 14 days, sooner if any problems, questions, or concerns. MILY / ARSH /[id number]
== END 2017-09-26 10:50 | disposition home or self-care (01) ==
LOC: MW.SDS 07:26
PROVIDERS: ATTEND Plastic Surgery
DX: T85.848A Pain due to other internal prosthetic devices, implants and grafts, initial encounter (principal); H66.91 Otitis media, unspecified, right ear; N52.9 Male erectile dysfunction, unspecified; B18.2 Chronic viral hepatitis C; G47.00 Insomnia, unspecified; M19.019 Primary osteoarthritis, unspecified shoulder; F17.210 Nicotine dependence, cigarettes, uncomplicated; Z90.89 Acquired absence of other organs; Z98.52 Vasectomy status; Z98.890 Other specified postprocedural states; Z79.899 Other long term (current) drug therapy
CPT/HCPCS: 20680; 88300; C9399; J2250; J3010; J7120; 00190; J2704

== ENCOUNTER 2017-12-09 01:48 | Emergency (ER) | payer BC ==
[2017-12-09] MEDS ORDERED: Bacitracin Oint 1 GM U/D Packet TOP ONE (02:08)
[2017-12-09] MEDS ORDERED: Diphtheria,Pertussis(Acell),Tetanus Vaccine 0.5 ML Syringe IM ONE (02:09)
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
[2017-12-09 02:40] VITALS: BP 131/60
== END 2017-12-09 02:32 | disposition home or self-care (01) ==
LOC: MW.ED 01:48
DX: S00.81XA Abrasion of other part of head, initial encounter (principal); F17.210 Nicotine dependence, cigarettes, uncomplicated; Z79.899 Other long term (current) drug therapy; V89.2XXA Person injured in unspecified motor-vehicle accident, traffic, initial encounter; Y92.410 Unspecified street and highway as the place of occurrence of the external cause; Z23 Encounter for immunization
CPT/HCPCS: 90471; 90715; 93005; 99282; 99284-25

== ENCOUNTER 2019-09-20 14:04 | Inpatient (IN) | payer BC ==
[2019-09-20] MEDS ORDERED: Sodium Chloride 0.9% 2.5 ML Syringe FLUSH PRN (14:22)
[2019-09-20] MEDS ORDERED: Acetaminophen 325 MG Tab PO PRN (14:22)
[2019-09-20 15:13] LABS: BLOOD UREA NITROGEN,BUN 12 mg/dL (7.0-18.0); CARBON DIOXIDE,CO2 22.7 mmol/L (21.0-32.0); CHLORIDE,CL 105 mmol/L (98-107); GLUCOSE RANDOM 114 mg/dL (74-106); POTASSIUM,K 3.6 mmol/L (3.5-5.1); SODIUM,NA 141 mmol/L (136-148)
[2019-09-20] MEDS: Nicotine 21 MG/24 Hr Patch TRDERM SCH (15:41)
[2019-09-20] MEDS: oxyCODONE 5 MG Tab PO PRN (15:42)
--- NOTE | 2019-09-20 15:58 | PCM.HP.2 ---
H&P History of Present Illness - General Date of Service: 09/20/19 Admit Problem/Dx: Admission Diagnosis/Problem Admission Diagnosis/Problem Cellulitis Source of Information: Patient, Old Records History Limitations: Reports: No Limitations - History of Present Illness Initial Comments - Free Text/Narative: This 58 year old male with pmh of tobacco dependence and colon resection presented from the clinic for direct admission secondary to failed outpatient management of cellulitis and abscess of R axilla. He reports 2 weeks ago, he was in an in room hotel [employer] [place] and the following evening he started having a red sore axilla. His friend had no rashes or redness. He reports he monitored this and as it progressed it got more painful. He saught medical care with Dr Last in the clinic, he was initially started on Bactrim and on day three the area worsened and Dr Last perform I&D and obtained cultures. He was then placed on Cipro out of concern for pseudomonas from a hot tub. He went home and he felt it improved then over the weekend now it started to be redder again and cultures returned with MRSA. He was at one time also on Augmentin and Cefdinir. He reports he has had some chills at home with no overt fever, 99-100 deg F. He reports mild shoulder pain, but this is at baseline and has had rotator cuff repair in the past. He denies chest pain or palpitations. No SOB. No abdominal pain, constipation. Reports intermittent loose stools, but currently they are ok. He reports smoking 1 ppd cigarettes, occasional marijuana use and reports daily alcohol intake with 1-5 beers daily. He denies withdrawal when he stops, no seizures in the past. Labwork obtained WBC not elevated. BMP WNL, glucose mildly elevated, will check A1c. LFTs normal. VS stable, afebrile. LActic acid normal. PCP, Dr Last. - Related Data Allergies/Adverse Reactions: Allergies Allergy/AdvReac Type Severity Reaction Status Date / Time No Known Allergies Allergy Verified 09/20/19 14:18 Home Medications: Home Meds Multivitamin [Multivitamins] 1 tab PO DAILY 09/23/17 [History] Acetaminophen/HYDROcodone [[place] 325-5 MG] 1 tab PO Q4H PRN #30 tablet 09/26/17 [Rx] Ascorbic Acid [Vitamin C] 1,000 mg PO DAILY 09/20/19 [History] Cefdinir 300 mg PO BID 09/20/19 [History] Ciprofloxacin [Ciprofloxacin HCl] 1 tab PO BID 09/20/19 [History] Sulfamethoxazole/Trimethoprim [Septra] 1 tab PO BID 09/20/19 [History] Past Medical History HEENT History: Reports: Impaired Vision Other HEENT History: top denture, wears glasses Cardiovascular History: Reports: None. Denies: Afib, Blood Clots/VTE/DVT, CAD, Hypertension, NH, Stents Respiratory History: Denies: Asthma, COPD, SOB Other Respiratory History: hx of smoking x 30 years Gastrointestinal History: Reports: Other (See Below) Other Gastrointestinal History: hx hepatitis C, states has been treated Genitourinary History: Reports: None Musculoskeletal History: Reports: Arthritis, Back Pain, Chronic, Other (See Below) Other Musculoskeletal History: occasional back pain in the mornings Neurological History: Reports: Concussion Psychiatric History: Reports: None Endocrine/Metabolic History: Reports: None. Denies: Diabetes, Type II, Obesity/ BMI 30+ - Infectious Disease History Infectious Disease History: Reports: Chicken Pox, Hepatitis C - Past Surgical History Head Surgeries/Procedures: Reports: None HEENT Surgical History: Reports: Tonsillectomy, Other (See Below) Other HEENT Surgeries/Procedures: surgical tx of depressed zygomatic arch fx, GI Surgical History: Reports: Colon, Other (See Below) Other GI Surgeries/Procedures: hernia repair at the age of 8, hx of partial colectomy Male Surgical History: Reports: Vasectomy Neurological Surgical History: Reports: Lumbar Spine Other Neurological Surgeries/Procedures: hx back surgery Musculoskeletal Surgical History: Reports: Shoulder Surgery Other Musculoskeletal Surgeries/Procedures:: bilateral rotator cuff repair Social & Family History - Family History Family Medical History: Noncontributory - Tobacco Use Smoking Status *Q: Current Every Day Smoker Years of Tobacco use: 30 Packs/Tins Daily: 1 Used Tobacco, but Quit: No - Caffeine Use Caffeine Use: Reports: Coffee, Energy Drinks Other Caffeine Use: 5-6 cups per day - Alcohol Use Days Per Week of Alcohol Use: 7 Number of Drinks Per Day: 4 Total Drinks Per Week: 28 Date of Last Drink: 09/19/19 Time of Last Drink: 16:00 Alcohol Use Frequency: Daily - Recreational Drug Use Recreational Drug Use: Yes Drug Use in Last 12 Months: Yes Recreational Drug Type: Reports: Marijuana/Hashish Recreational Drug Use Frequency: Rarely H&P Review of Systems - Review of Systems: Review Of Systems: See Below General: Reports: Fever, Chills, Malaise HEENT: Reports: Headaches. Denies: Sinus Congestion, Sore Throat Pulmonary: Reports: No Symptoms. Denies: Shortness of Breath, Wheezing Cardiovascular: Reports: No Symptoms. Denies: Chest Pain Gastrointestinal: Reports: No Symptoms. Denies: Abdominal Pain, Black Stool, Bloody Stool Genitourinary: Reports: No Symptoms Musculoskeletal: Reports: Shoulder Pain (R shoulder/axilla) Skin: Reports: Erythema, Wound Psychiatric: Reports: No Symptoms Hematologic/Lymphatic: Reports: No Symptoms Immunologic: Reports: No Symptoms Exam - Exam Exam: See Below - Vital Signs Vital Signs: Last Vital Signs Temp 98.4 F 09/20/19 14:22 Pulse 98 09/20/19 14:22 Resp 18 09/20/19 14:22 BP 148/96 H 09/20/19 14:22 Pulse Ox 95 09/20/19 14:22 Weight: 66.7 kg - Exam General: Alert, Oriented, Cooperative Neck: Supple, Trachea Midline Lungs: Clear to Auscultation, Normal Respiratory Effort Cardiovascular: Regular Rate, Regular Rhythm, Normal S1, Normal S2. No: Systolic Murmur GI/Abdominal Exam: Normal Bowel Sounds, Soft, Non-Tender Back Exam: Normal Inspection, Full Range of Motion Extremities: Normal Inspection, Normal Range of Motion, Non-Tender, No Pedal Edema Skin: Wound, Other (Erythema to R axilla with multiple areas on small induration. No necrotic or pustules noted at this time. tenderness to palpation. Some erythema spread to anterior chest with mild swelling noted to pec. Mild lymphadapthy to R axilla) Neuro Extensive - Mental Status: Alert, Oriented x3 Neuro Extensive - Motor, Sensory, Reflexes: CN II-XII Intact Psychiatric: Alert, Normal Affect - Patient Data Lab Results Last 24 hrs: Laboratory Results - last 24 hr 09/20/19 09/20/19 09/20/19 Range/Units 14:34 14:34 14:42 WBC 8.28 (4.0-11.0) K/uL RBC 4.74 (4.50-5.90) M/uL Hgb 15.9 (13.0-17.0) g/dL Hct 44.4 (38.0-50.0) % MCV 93.7 (80.0-98.0) fL MCH 33.5 H (27.0-32.0) pg MCHC 35.8 (31.0-37.0) g/dL RDW Std Deviation 48.0 (28.0-62.0) fl RDW Coeff of Jaylon 15 (11.0-15.0) % Plt Count 280 (150-400) K/uL MPV 8.50 (7.40-12.00) fL Neut % (Auto) 82.0 H (48.0-80.0) % Lymph % (Auto) 13.5 L (16.0-40.0) % Cochran % (Auto) 3.9 (0.0-15.0) % Eos % (Auto) 0.4 (0.0-7.0) % Baso % (Auto) 0.2 (0.0-1.5) % Neut # (Auto) 6.8 H (1.4-5.7) K/uL Lymph # (Auto) 1.1 (0.6-2.4) K/uL Cochran # (Auto) 0.3 (0.0-0.8) K/uL Eos # (Auto) 0.0 (0.0-0.7) K/uL Baso # (Auto) 0.0 (0.0-0.1) K/uL Lactate 0.7 (0.20-2.00) mmol/L Sodium 141 (136-148) mmol/L Potassium 3.6 (3.5-5.1) mmol/L Chloride 105 (98-107) mmol/L Carbon Dioxide 22.7 (21.0-32.0) mmol/L BUN 12 (7.0-18.0) mg/dL Creatinine 0.9 (0.8-1.3) mg/dL Est Cr Clr Drug Dosing 75.93 mL/min Estimated GFR (MDRD) > 60.0 ml/min Glucose 114 H (74-106) mg/dL Calcium 9.0 (8.5-10.1) mg/dL Total Bilirubin 0.2 (0.2-1.0) mg/dL AST 27 (15-37) IU/L ALT 42 (14-63) IU/L Alkaline Phosphatase 146 H (46-116) U/L Total Protein 7.6 (6.4-8.2) g/dL Albumin 3.8 (3.4-5.0) g/dL Globulin 3.8 (2.6-4.0) g/dL Albumin/Globulin Ratio 1.0 (0.9-1.6) Result Diagrams: 09/20/19 14:34 09/20/19 14:42 - Problem List (1) Cellulitis and abscess of upper extremity SNOMED Code(s): 667485985 ICD Code: L03.119 - CELLULITIS OF UNSPECIFIED PART OF LIMB; L02.419 - CUTANEOUS ABSCESS OF LIMB, UNSPECIFIED Status: Acute Current Visit: Yes (2) Tobacco dependence SNOMED Code(s): 84317233 ICD Code: F17.200 - NICOTINE DEPENDENCE, UNSPECIFIED, UNCOMPLICATED Status : Chronic Current Visit: Yes Problem List Initiated/Reviewed/Updated: Yes Orders Last 24hrs: Active Orders 24 hr Category Date Time Status Patient Status [ADT] Routine ADT 09/20/19 14:22 Active Intake and Output [RC] Q12H Care 09/20/19 14:23 Active Oxygen Therapy [RC] PRN Care 09/20/19 14:22 Active Up With Assistance [RC] ASDIRECTED Care 09/20/19 14:22 Active VTE/DVT Education [RC] PER UNIT ROUTINE Care 09/20/19 14:22 Active Vital Signs [RC] Q4H Care 09/20/19 14:22 Active Regular Diet [DIET] Diet 09/20/19 Lunch Active Shoulder Comp Rt [CR] Urgent Exams 09/20/19 15:49 Ordered CULTURE BLOOD [BC] Stat Lab 09/20/19 14:34 Received CULTURE BLOOD [BC] Stat Lab 09/20/19 14:42 Received GLYCOSYLATED HEMOGLOBIN,HGBA1C [CHEM] Routine Lab 09/20/19 15:52 Ordered VANCOMYCIN TROUGH [CHEM] Routine Lab 09/22/19 03:15 Ordered Acetaminophen [Tylenol] Med 09/20/19 14:22 Active 650 mg PO Q4H PRN Nicotine [Habitrol] Med 09/20/19 15:15 Active 21 mg TRDERM DAILY Ondansetron [Zofran] Med 09/20/19 14:22 Active 4 mg IVPUSH Q4H PRN Sodium Chloride 0.9% [Saline Flush] Med 09/20/19 14:22 Active 2.5 ml FLUSH ASDIRECTED PRN Vancomycin 1.25 gm Med 09/20/19 16:00 Active Sodium Chloride 0.9% [Normal Saline (AdvBag)] 250 ml IV Q12H oxyCODONE Med 09/20/19 14:22 Active 5 mg PO Q4H PRN Blood Culture x2 Reflex Set [OM.PC] Stat Ot 09/20/19 14:19 Ordered Isolation [COMM] Routine Oth 09/20/19 14:33 Ordered Saline Lock Insert [OM.PC] Routine Oth 09/20/19 14:22 Ordered Resuscitation Status Routine Resus Stat 09/20/19 14:22 Ordered Medication Orders Acetaminophen (Tylenol) 650 mg PO Q4H PRN PRN Reason: Pain (Mild 1-3)/fever Vancomycin HCl 1.25 gm/ Sodium (Chloride) 250 mls @ 250 mls/hr IV Q12H HECTOR Nicotine (Habitrol) 21 mg TRDERM DAILY [facility] Last Admin: 09/20/19 15:41 Dose: 21 mg Ondansetron HCl (Zofran) 4 mg IVPUSH Q4H PRN PRN Reason: Nausea Oxycodone HCl (Oxycodone) 5 mg PO Q4H PRN PRN Reason: Pain (moderate 4-6) Last Admin: 09/20/19 15:42 Dose: 5 mg Sodium Chloride (Saline Flush) 2.5 ml FLUSH ASDIRECTED PRN PRN Reason: Keep Vein Open Assessment/Plan Comment:: This 58 year old male admitted with failed outpatient management of cellulitis and abscess to R axilla 1. Cellulitis: No obvious abscess currently, was drained last week. Culture revealed MRSA. Will add Vancomycin. Monitor labwork in am. Contact isolation. Xray of R shoulder, no increase in baseline pain. Will monitor. 2. Alcohol use: Thiamine and folic acid supplementation. CIWAA protocol with Ativan. VTE prophylaxis: SCDs Dispo: 2-3 days pending improvement. - Mortality Measure Prognosis:: Good
[2019-09-20] MEDS ORDERED: LORazepam 2 MG/ML SDV IVPUSH PRN (16:18)
[2019-09-20] MEDS ORDERED: LORazepam 1 MG Tab PO PRN (16:18)
[2019-09-20 16:40] LABS: HEMOGLOBIN A1C 5.7 % (4.5-6.2)
--- NOTE | 2019-09-20 16:58 | CR ---
Indication: Axillary abscess. Technique: Three views of the right shoulder. Comparison: July 31, 2018. Findings: The humeral head is high riding. No fracture or subluxation is identified. No bony erosions are identified. Degenerative changes are identified at the acromioclavicular and glenohumeral joint spaces Impression: High-riding humeral head, which can be seen with rotator cuff pathology. Dictated by Opal Pringle MD @ Sep 20 2019 4:57PM Signed by Dr. Opal Pringle @ Sep 20 2019 4:58PM
[2019-09-20] MEDS: Thiamine 100 MG Tab PO SCH (21:37)
[2019-09-20] MEDS: Folic Acid 1 MG Tab PO SCH (21:38)
[2019-09-21] MEDS ORDERED: diphenhydrAMINE 25 MG Cap PO ONE (00:25)
[2019-09-21] MEDS: oxyCODONE 5 MG Tab PO PRN ×4 (00:39→20:33)
[2019-09-21 06:35] LABS: BLOOD UREA NITROGEN,BUN 12 mg/dL (7.0-18.0); CARBON DIOXIDE,CO2 25.4 mmol/L (21.0-32.0); CHLORIDE,CL 105 mmol/L (98-107); GLUCOSE RANDOM 103 mg/dL (74-106); POTASSIUM,K 4.1 mmol/L (3.5-5.1); SODIUM,NA 139 mmol/L (136-148)
--- NOTE | 2019-09-21 09:18 | PCM.PN ---
- General Info Date of Service: 09/21/19 Admission Dx/Problem (Free Text): Admission Diagnosis/Problem Admission Diagnosis/Problem Cellulitis Subjective Update: Feeling improved today, reports continued pain, but axilla is drying up and redness is improving. No fevers. No chest pain or SOB. Reports axilla is very itchy, benadryl helped last night. Functional Status: Reports: Pain Controlled, Tolerating Diet, Ambulating, Urinating - Review of Systems Pulmonary: Reports: No Symptoms. Denies: Shortness of Breath Cardiovascular: Reports: No Symptoms. Denies: Chest Pain Gastrointestinal: Reports: No Symptoms. Denies: Abdominal Pain, Nausea, Vomiting Genitourinary: Reports: No Symptoms Musculoskeletal: Reports: Other (axilla) Skin: Reports: Rash (improving) - Patient Data Vitals - Most Recent: Last Vital Signs Temp 97.6 F 09/21/19 08:11 Pulse 68 09/21/19 08:11 Resp 15 09/21/19 08:11 BP 148/94 H 09/21/19 08:11 Pulse Ox 95 09/21/19 08:11 Weight - Most Recent: 66.7 kg I&O - Last 24 Hours: Intake & Output 09/20/19 09/21/19 09/21/19 22:59 06:59 14:59 Intake Total 980 Output Total 780 Balance 200 Lab Results Last 24 Hours: Laboratory Results - last 24 hr 09/20/19 09/20/19 09/20/19 Range/Units 14:34 14:34 14:34 WBC 8.28 (4.0-11.0) K/uL RBC 4.74 (4.50-5.90) M/uL Hgb 15.9 (13.0-17.0) g/dL Hct 44.4 (38.0-50.0) % MCV 93.7 (80.0-98.0) fL MCH 33.5 H (27.0-32.0) pg MCHC 35.8 (31.0-37.0) g/dL RDW Std Deviation 48.0 (28.0-62.0) fl RDW Coeff of Jaylon 15 (11.0-15.0) % Plt Count 280 (150-400) K/uL MPV 8.50 (7.40-12.00) fL Neut % (Auto) 82.0 H (48.0-80.0) % Lymph % (Auto) 13.5 L (16.0-40.0) % [place] % (Auto) 3.9 (0.0-15.0) % Eos % (Auto) 0.4 (0.0-7.0) % Baso % (Auto) 0.2 (0.0-1.5) % Neut # (Auto) 6.8 H (1.4-5.7) K/uL Lymph # (Auto) 1.1 (0.6-2.4) K/uL [place] # (Auto) 0.3 (0.0-0.8) K/uL Eos # (Auto) 0.0 (0.0-0.7) K/uL Baso # (Auto) 0.0 (0.0-0.1) K/uL Lactate 0.7 (0.20-2.00) mmol/L Sodium (136-148) mmol/L Potassium (3.5-5.1) mmol/L Chloride (98-107) mmol/L Carbon Dioxide (21.0-32.0) mmol/L BUN (7.0-18.0) mg/dL Creatinine (0.8-1.3) mg/dL Est Cr Clr Drug Dosing mL/min Estimated GFR (MDRD) ml/min Glucose (74-106) mg/dL Hemoglobin A1c 5.7 (4.5-6.2) % Calcium (8.5-10.1) mg/dL Total Bilirubin (0.2-1.0) mg/dL AST (15-37) IU/L ALT (14-63) IU/L Alkaline Phosphatase (46-116) U/L Total Protein (6.4-8.2) g/dL Albumin (3.4-5.0) g/dL Globulin (2.6-4.0) g/dL Albumin/Globulin Ratio (0.9-1.6) 09/20/19 09/21/19 09/21/19 Range/Units 14:42 05:53 05:53 WBC 5.77 (4.0-11.0) K/uL RBC 4.35 L (4.50-5.90) M/uL Hgb 14.7 (13.0-17.0) g/dL Hct 41.5 (38.0-50.0) % MCV 95.4 (80.0-98.0) fL MCH 33.8 H (27.0-32.0) pg MCHC 35.4 (31.0-37.0) g/dL RDW Std Deviation 49.7 (28.0-62.0) fl RDW Coeff of Jaylon 15 (11.0-15.0) % Plt Count 244 (150-400) K/uL MPV 8.70 (7.40-12.00) fL Neut % (Auto) 65.3 (48.0-80.0) % Lymph % (Auto) 22.0 (16.0-40.0) % [place] % (Auto) 10.1 (0.0-15.0) % Eos % (Auto) 2.1 (0.0-7.0) % Baso % (Auto) 0.5 (0.0-1.5) % Neut # (Auto) 3.8 (1.4-5.7) K/uL Lymph # (Auto) 1.3 (0.6-2.4) K/uL [place] # (Auto) 0.6 (0.0-0.8) K/uL Eos # (Auto) 0.1 (0.0-0.7) K/uL Baso # (Auto) 0.0 (0.0-0.1) K/uL Lactate (0.20-2.00) mmol/L Sodium 141 139 (136-148) mmol/L Potassium 3.6 4.1 (3.5-5.1) mmol/L Chloride 105 105 (98-107) mmol/L Carbon Dioxide 22.7 25.4 (21.0-32.0) mmol/L BUN 12 12 (7.0-18.0) mg/dL Creatinine 0.9 0.8 (0.8-1.3) mg/dL Est Cr Clr Drug Dosing 75.93 85.42 mL/min Estimated GFR (MDRD) > 60.0 > 60.0 ml/min Glucose 114 H 103 (74-106) mg/dL Hemoglobin A1c (4.5-6.2) % Calcium 9.0 8.3 L (8.5-10.1) mg/dL Total Bilirubin 0.2 (0.2-1.0) mg/dL AST 27 (15-37) IU/L ALT 42 (14-63) IU/L Alkaline Phosphatase 146 H (46-116) U/L Total Protein 7.6 (6.4-8.2) g/dL Albumin 3.8 (3.4-5.0) g/dL Globulin 3.8 (2.6-4.0) g/dL Albumin/Globulin Ratio 1.0 (0.9-1.6) Med Orders - Current: Current Medications Acetaminophen (Tylenol) 650 mg PO Q4H PRN PRN Reason: Pain (Mild 1-3)/fever Last Admin: 09/20/19 19:52 Dose: 650 mg Diphenhydramine HCl (Benadryl) 25 mg PO Q6H PRN PRN Reason: Itching Folic Acid (Folic Acid) 1 mg PO BEDTIME [facility] Last Admin: 09/20/19 21:38 Dose: 1 mg Vancomycin HCl 1.25 gm/ Sodium (Chloride) 250 mls @ 250 mls/hr IV Q12H [facility] Last Admin: 09/21/19 04:07 Dose: 250 mls/hr Lorazepam (Ativan) 0 mg PO Q4H PRN; Protocol PRN Reason: CIWAA Lorazepam (Ativan) 0 mg IVPUSH Q4H PRN; Protocol PRN Reason: CIWAA Nicotine (Habitrol) 21 mg TRDERM DAILY [facility] Last Admin: 09/20/19 15:41 Dose: 21 mg Ondansetron HCl (Zofran) 4 mg IVPUSH Q4H PRN PRN Reason: Nausea Oxycodone HCl (Oxycodone) 5 mg PO Q4H PRN PRN Reason: Pain (moderate 4-6) Last Admin: 09/21/19 07:37 Dose: 5 mg Sodium Chloride (Saline Flush) 2.5 ml FLUSH ASDIRECTED PRN PRN Reason: Keep Vein Open Thiamine HCl (Vitamin B-1) 100 mg PO BEDTIME [facility] Last Admin: 09/20/19 21:37 Dose: 100 mg Discontinued Medications Diphenhydramine HCl (Benadryl) 25 mg PO ONETIME ONE Stop: 09/21/19 00:26 Last Admin: 09/21/19 00:39 Dose: 25 mg Vancomycin HCl 1 gm/ Sodium (Chloride) 250 mls @ 250 mls/hr IV Q12H [facility] Last Admin: 09/20/19 16:31 Dose: Not Given Vancomycin HCl (Pharmacy To Dose - Vancomycin) 1 dose .XX ASDIRECTED HECTOR - Exam General: Alert, Oriented, Cooperative Lungs: Clear to Auscultation, Normal Respiratory Effort Cardiovascular: Regular Rate, Regular Rhythm GI/Abdominal Exam: Normal Bowel Sounds, Soft, Non-Tender Extremities: Normal Inspection, Normal Range of Motion, Non-Tender, No Pedal Edema Wound/Incisions: Erythema Improving (significant improvement in cellulitis to R axilla, erythema receded from chest to mainly in axilla. small indurated region in axilla remains. No fluctuance, tiny pustules noted, but nothing needing I&D currently.) - Problem List & Annotations (1) Cellulitis and abscess of upper extremity SNOMED Code(s): 830856669 Code(s): L03.119 - CELLULITIS OF UNSPECIFIED PART OF LIMB; L02.419 - CUTANEOUS ABSCESS OF LIMB, UNSPECIFIED Status: Acute Current Visit: Yes (2) Tobacco dependence SNOMED Code(s): 64179392 Code(s): F17.200 - NICOTINE DEPENDENCE, UNSPECIFIED, UNCOMPLICATED Status: Chronic Current Visit: Yes - Problem List Review Problem List Initiated/Reviewed/Updated: Yes - My Orders Last 24 Hours: My Active Orders 09/20/19 14:19 Blood Culture x2 Reflex Set [OM.PC] Stat 09/20/19 14:22 Patient Status [ADT] Routine Oxygen Therapy [RC] PRN Up With Assistance [RC] ASDIRECTED VTE/DVT Education [RC] PER UNIT ROUTINE Vital Signs [RC] Q4H Acetaminophen [Tylenol] 650 mg PO Q4H PRN Ondansetron [Zofran] 4 mg IVPUSH Q4H PRN Sodium Chloride 0.9% [Saline Flush] 2.5 ml FLUSH ASDIRECTED PRN oxyCODONE 5 mg PO Q4H PRN Saline Lock Insert [OM.PC] Routine Resuscitation Status Routine 09/20/19 14:23 Intake and Output [RC] Q12H 09/20/19 14:33 Isolation [COMM] Routine 09/20/19 14:34 CULTURE BLOOD [BC] Stat 09/20/19 14:42 CULTURE BLOOD [BC] Stat 09/20/19 15:15 Nicotine [Habitrol] 21 mg TRDERM DAILY 09/20/19 16:00 Vancomycin 1.25 gm Sodium Chloride 0.9% [Normal Saline (AdvBag)] 250 ml IV Q12H 09/20/19 16:18 LORazepam [Ativan] See Protocol IVPUSH Q4H PRN LORazepam [Ativan] See Protocol PO Q4H PRN 09/20/19 16:19 CIWAA Assessment [RC] Q4H 09/20/19 16:20 Antiembolic Devices [RC] PER UNIT ROUTINE SCD [Sequential Compression Device] [OM.PC] Routine 09/20/19 21:00 Folic Acid 1 mg PO BEDTIME Thiamine [Vitamin B-1] 100 mg PO BEDTIME 09/20/19 Lunch Regular Diet [DIET] 09/21/19 09:16 diphenhydrAMINE [Benadryl] 25 mg PO Q6H PRN 09/22/19 03:15 VANCOMYCIN TROUGH [CHEM] Routine 09/22/19 05:11 BMP [BASIC METABOLIC PANEL,BMP] [CHEM] AM CBC WITH AUTO DIFF [HEME] AM - Plan Plan:: This 58 year old male admitted with failed outpatient management of cellulitis and abscess to R axilla 1. Cellulitis: Improving. Culture revealed MRSA. Continue Vancomycin. Monitor labwork in am. Contact isolation. Xray of R shoulder, negative. 2. Alcohol use: Thiamine and folic acid supplementation. CIWAA protocol with Ativan. VTE prophylaxis: SCDs Dispo: 2-3 days pending improvement.
[2019-09-21] MEDS: Nicotine 21 MG/24 Hr Patch TRDERM SCH (09:40)
[2019-09-21] MEDS: Folic Acid 1 MG Tab PO SCH (20:33)
[2019-09-21] MEDS: Thiamine 100 MG Tab PO SCH (20:33)
[2019-09-21] MEDS: diphenhydrAMINE 25 MG Cap PO PRN (22:33)
[2019-09-22 03:43] LABS: BLOOD UREA NITROGEN,BUN 14 mg/dL (7.0-18.0); CARBON DIOXIDE,CO2 27.5 mmol/L (21.0-32.0); CHLORIDE,CL 106 mmol/L (98-107); GLUCOSE RANDOM 109 mg/dL (74-106); POTASSIUM,K 4.6 mmol/L (3.5-5.1); SODIUM,NA 139 mmol/L (136-148)
[2019-09-22] MEDS: oxyCODONE 5 MG Tab PO PRN ×4 (04:29→23:33)
[2019-09-22] MEDS: Nicotine 21 MG/24 Hr Patch TRDERM SCH (09:34)
[2019-09-22] MEDS: diphenhydrAMINE 25 MG Cap PO PRN ×3 (09:49→23:33)
--- NOTE | 2019-09-22 12:38 | PCM.PN ---
- General Info Date of Service: 09/22/19 Admission Dx/Problem (Free Text): Admission Diagnosis/Problem Admission Diagnosis/Problem Cellulitis Subjective Update: Feeling like it was improved but then this morning feels its more red. No chest pain. No SOB. Functional Status: Reports: Pain Controlled, Tolerating Diet, Ambulating - Review of Systems General: Denies: Fever, Weakness HEENT: Reports: No Symptoms. Denies: Headaches, Sinus Congestion Pulmonary: Reports: No Symptoms. Denies: Shortness of Breath Cardiovascular: Reports: No Symptoms. Denies: Chest Pain Gastrointestinal: Reports: No Symptoms. Denies: Abdominal Pain Genitourinary: Reports: No Symptoms. Denies: Dysuria, Frequency Skin: Reports: Rash (erythema worsening to patient.) Neurological: Reports: No Symptoms Psychiatric: Reports: No Symptoms - Patient Data Vitals - Most Recent: Last Vital Signs Temp 97.6 F 09/22/19 08:00 Pulse 67 09/22/19 08:00 Resp 18 09/22/19 08:00 BP 148/70 H 09/22/19 08:00 Pulse Ox 93 L 09/22/19 08:00 Weight - Most Recent: 66.7 kg I&O - Last 24 Hours: Intake & Output 09/21/19 09/22/19 09/22/19 22:59 06:59 14:59 Intake Total 1500 1100 250 Output Total 1150 1200 Balance 350 -100 250 Lab Results Last 24 Hours: Laboratory Results - last 24 hr 09/22/19 09/22/19 09/22/19 Range/Units 03:23 03:23 03:23 WBC 5.85 (4.0-11.0) K/uL RBC 4.31 L (4.50-5.90) M/uL Hgb 14.1 (13.0-17.0) g/dL Hct 41.9 (38.0-50.0) % MCV 97.2 (80.0-98.0) fL MCH 32.7 H (27.0-32.0) pg MCHC 33.7 (31.0-37.0) g/dL RDW Std Deviation 53.0 (28.0-62.0) fl RDW Coeff of Jaylon 15 (11.0-15.0) % Plt Count 223 (150-400) K/uL MPV 9.10 (7.40-12.00) fL Neut % (Auto) 56.5 (48.0-80.0) % Lymph % (Auto) 29.7 (16.0-40.0) % [place] % (Auto) 10.4 (0.0-15.0) % Eos % (Auto) 2.9 (0.0-7.0) % Baso % (Auto) 0.5 (0.0-1.5) % Neut # (Auto) 3.3 (1.4-5.7) K/uL Lymph # (Auto) 1.7 (0.6-2.4) K/uL [place] # (Auto) 0.6 (0.0-0.8) K/uL Eos # (Auto) 0.2 (0.0-0.7) K/uL Baso # (Auto) 0.0 (0.0-0.1) K/uL Nucleated RBC % 0.0 /100WBC Nucleated RBCs # 0 K/uL Sodium 139 (136-148) mmol/L Potassium 4.6 (3.5-5.1) mmol/L Chloride 106 (98-107) mmol/L Carbon Dioxide 27.5 (21.0-32.0) mmol/L BUN 14 (7.0-18.0) mg/dL Creatinine 0.9 (0.8-1.3) mg/dL Est Cr Clr Drug Dosing 75.93 mL/min Estimated GFR (MDRD) > 60.0 ml/min Glucose 109 H (74-106) mg/dL Calcium 8.4 L (8.5-10.1) mg/dL Vancomycin Trough 10.9 H (5.0-10.0) ug/mL [place] Results Last 24 Hours: Microbiology 09/20/19 14:42 Aerobic Blood Culture - Preliminary Blood - Venous - Lab Draw NO GROWTH AFTER 1 DAY Anaerobic Blood Culture - Preliminary NO GROWTH AFTER 1 DAY 09/20/19 14:34 Aerobic Blood Culture - Preliminary Blood - Venous NO GROWTH AFTER 1 DAY Anaerobic Blood Culture - Preliminary NO GROWTH AFTER 1 DAY Med Orders - Current: Current Medications Acetaminophen (Tylenol) 650 mg PO Q4H PRN PRN Reason: Pain (Mild 1-3)/fever Last Admin: 09/20/19 19:52 Dose: 650 mg Diphenhydramine HCl (Benadryl) 25 mg PO Q6H PRN PRN Reason: Itching Last Admin: 09/22/19 09:49 Dose: 25 mg Folic Acid (Folic Acid) 1 mg PO BEDTIME [facility] Last Admin: 09/21/19 20:33 Dose: 1 mg Vancomycin HCl 1.25 gm/ Sodium (Chloride) 250 mls @ 250 mls/hr IV Q12H [facility] Last Admin: 09/22/19 04:28 Dose: 250 mls/hr Lorazepam (Ativan) 0 mg PO Q4H PRN; Protocol PRN Reason: CIWAA Lorazepam (Ativan) 0 mg IVPUSH Q4H PRN; Protocol PRN Reason: CIWAA Nicotine (Habitrol) 21 mg TRDERM DAILY [facility] Last Admin: 09/22/19 09:34 Dose: 21 mg Ondansetron HCl (Zofran) 4 mg IVPUSH Q4H PRN PRN Reason: Nausea Oxycodone HCl (Oxycodone) 5 mg PO Q4H PRN PRN Reason: Pain (moderate 4-6) Last Admin: 09/22/19 09:34 Dose: 5 mg Sodium Chloride (Saline Flush) 2.5 ml FLUSH ASDIRECTED PRN PRN Reason: Keep Vein Open Thiamine HCl (Vitamin B-1) 100 mg PO BEDTIME [facility] Last Admin: 09/21/19 20:33 Dose: 100 mg Discontinued Medications Diphenhydramine HCl (Benadryl) 25 mg PO ONETIME ONE Stop: 09/21/19 00:26 Last Admin: 09/21/19 00:39 Dose: 25 mg Vancomycin HCl 1 gm/ Sodium (Chloride) 250 mls @ 250 mls/hr IV Q12H [facility] Last Admin: 09/20/19 16:31 Dose: Not Given Vancomycin HCl (Pharmacy To Dose - Vancomycin) 1 dose .XX ASDIRECTED [facility] - Exam General: Alert, Oriented, Cooperative Lungs: Clear to Auscultation, Normal Respiratory Effort Cardiovascular: Regular Rate, Regular Rhythm, No Murmurs GI/Abdominal Exam: Normal Bowel Sounds, Soft, Non-Tender Extremities: Normal Inspection, Normal Range of Motion, Non-Tender, No Pedal Edema, Normal Capillary Refill Wound/Incisions: Erythema Improving (Continues to improve, noted to be itching chest and axilla more causing reddened skin. small area of inudration continues to be indurated. No fluctuance.) - Problem List & Annotations (1) Cellulitis and abscess of upper extremity SNOMED Code(s): 524937518 Code(s): L03.119 - CELLULITIS OF UNSPECIFIED PART OF LIMB; L02.419 - CUTANEOUS ABSCESS OF LIMB, UNSPECIFIED Status: Acute Current Visit: Yes (2) Tobacco dependence SNOMED Code(s): 19935933 Code(s): F17.200 - NICOTINE DEPENDENCE, UNSPECIFIED, UNCOMPLICATED Status: Chronic Current Visit: Yes - Problem List Review Problem List Initiated/Reviewed/Updated: Yes - My Orders Last 24 Hours: My Active Orders 09/22/19 10:09 Extremity Non Vascular LTD [US] Urgent 09/22/19 10:11 May Shower [RC] ASDIRECTED - Plan Plan:: This 58 year old male admitted with failed outpatient management of cellulitis and abscess to R axilla 1. Cellulitis: Improving. Patient concerned about worsening. US of axilla revealed solid cystic and possible abscess. No obvious fluid collection. Continue to monitor Culture revealed MRSA. Continue Vancomycin. Monitor labwork in am. Contact isolation. 2. Alcohol use: Thiamine and folic acid supplementation. CIWAA protocol with Ativan. VTE prophylaxis: SCDs Dispo: 1-2 days
--- NOTE | 2019-09-22 12:46 | US ---
EXAM DATE: 09/20/19 PATIENT'S AGE: 58 Right axillary ultrasound: Multiple real-time images of the right axillary region were obtained. Findings: Mixed cystic and solid finding is seen within the right axillary region which is superficial in location measuring 1.2 x 0.7 x 1.8 cm. This finding is nonspecific but most likely represents a mixed cystic and solid abscess given its superficial location. Minimal subcutaneous edema is seen. Impression: 1. Mixed cystic and solid finding as noted above. 2. Mild subcutaneous edema. Diagnostic code #3 This report was dictated in [place] Standard Time Report Signed by Proxy. [facility]
[2019-09-22] MEDS: Fluticasone Propionate Nasal Spray 16 GM Bottle NASBOTH SCH (16:01)
[2019-09-22] MEDS: Thiamine 100 MG Tab PO SCH (21:16)
[2019-09-22] MEDS: Folic Acid 1 MG Tab PO SCH (21:16)
[2019-09-22] MEDS: Ondansetron 4 MG/2 ML SDV IVPUSH PRN (23:36)
[2019-09-23] MEDS: Ondansetron 4 MG/2 ML SDV IVPUSH PRN (04:48)
[2019-09-23 05:48] LABS: BLOOD UREA NITROGEN,BUN 16 mg/dL (7.0-18.0); CHLORIDE,CL 104 mmol/L (98-107); GLUCOSE RANDOM 174 mg/dL (74-106); POTASSIUM,K 4.2 mmol/L (3.5-5.1); SODIUM,NA 138 mmol/L (136-148)
[2019-09-23] MEDS ORDERED: Sodium Chloride 0.9% 1,000 ML IV ONE (09:05)
[2019-09-23] MEDS: Nicotine 21 MG/24 Hr Patch TRDERM SCH (09:14)
[2019-09-23] MEDS: Fluticasone Propionate Nasal Spray 16 GM Bottle NASBOTH SCH (09:14)
[2019-09-23] MEDS ORDERED: Azithromycin 250 MG Tab PO SCH (14:45)
[2019-09-23 15:10] VITALS: BP 125/74; PULSE 103
--- NOTE | 2019-09-23 15:26 | PCM.DCSUM1 ---
Discharge Summary - Hospital Course Brief History: This 58 year old male with pmh of tobacco dependence and colon resection presented from the clinic for direct admission secondary to failed outpatient management of cellulitis and abscess of R axilla. He reports 2 weeks ago, he was in an in room hotel [place] and the following evening he started having a red sore axilla. His friend had no rashes or redness. He reports he monitored this and as it progressed it got more painful. He saught medical care with Dr Last in the clinic, he was initially started on Bactrim and on day three the area worsened and Dr Last perform I&D and obtained cultures. He was then placed on Cipro out of concern for pseudomonas from a hot tub. He went home and he felt it improved then over the weekend now it started to be redder again and cultures returned with MRSA. He was at one time also on Augmentin and Cefdinir. He reports he has had some chills at home with no overt fever, 99-100 deg F. He reports mild shoulder pain, but this is at baseline and has had rotator cuff repair in the past. He denies chest pain or palpitations. No SOB. No abdominal pain, constipation. Reports intermittent loose stools, but currently they are ok. He reports smoking 1 ppd cigarettes, occasional marijuana use and reports daily alcohol intake with 1-5 beers daily. He denies withdrawal when he stops, no seizures in the past. Labwork obtained WBC not elevated. BMP WNL, glucose mildly elevated, will check A1c. LFTs normal. VS stable, afebrile. LActic acid normal. PCP, Dr Last. Diagnosis: Stroke: No - Discharge Data Discharge Date: 09/23/19 Discharge Disposition: Home, Self-Care 01 Condition: Good - Referral to Home Health Primary Care Physician: Wilson Porter MD - Discharge Diagnosis/Problem(s) (1) Cellulitis and abscess of upper extremity SNOMED Code(s): 760145176 ICD Code: L03.119 - CELLULITIS OF UNSPECIFIED PART OF LIMB; L02.419 - CUTANEOUS ABSCESS OF LIMB, UNSPECIFIED Status: Acute (2) Tobacco dependence SNOMED Code(s): 85545499 ICD Code: F17.200 - NICOTINE DEPENDENCE, UNSPECIFIED, UNCOMPLICATED Status : Chronic - Patient Instructions Diet: GI Soft/Low Residue/Low Fiber Activity: As Tolerated Showering/Bathing: May Shower Notify Provider of: Fever, Increased Pain, Swelling and Redness, Drainage, Nausea and/or Vomiting - Discharge Plan *PRESCRIPTION DRUG MONITORING PROGRAM REVIEWED*: Not Applicable *COPY OF PRESCRIPTION DRUG MONITORING REPORT IN PATIENT SABA: Not Applicable Prescriptions/Med Rec: Azithromycin [Zithromax] 500 mg PO Q24H 6 Days #12 tablet L.acidoph,Paracasei, B.lactis [Probiotic] 1 each PO BID #60 capsule Sulfamethoxazole/Trimethoprim [Septra] 1 tab PO BID #10 tablet Home Medications: Home Meds Multivitamin [Multivitamins] 1 tab PO DAILY 09/23/17 [History] Ascorbic Acid [Vitamin C] 1,000 mg PO DAILY 09/20/19 [History] Acetaminophen [Tylenol] 650 mg PO Q4H PRN tablet 09/23/19 [Rx] Azithromycin [Zithromax] 500 mg PO Q24H 6 Days #12 tablet 09/23/19 [Rx] Fluticasone Propionate [Flonase] 1 spr NASBOTH DAILY bottle 09/23/19 [Rx] L.acidoph,Paracasei, B.lactis [Probiotic] 1 each PO BID #60 capsule 09/23/19 [Rx ] Sulfamethoxazole/Trimethoprim [Septra] 1 tab PO BID #10 tablet 09/23/19 [Rx] Oxygen Therapy Mode: Room Air Patient Handouts: Cellulitis, Adult, [id number], Azithromycin tablets, Sulfamethoxazole; Trimethoprim, SMX-TMP tablets, Probiotics Referrals: [facility] [Outside] Ed Last DO [Physician] - 09/30/19 9:45 am - Discharge Summary/Plan Comment DC Time >30 min.: No Discharge Summary/Plan Comment: Admitting Diagnoses: MRSA cellulitis and previous abscess to R axilla Discharge Diagnoses: MRSA cellulitis and previous abscess to R axilla Campylobacter diarrhea Other PMH: Alcohol abuse Tobacco dependence. Boyd was admitted secondary to failed outpatient management of MRSA cellulitis with abscess. Abscess was drained outpatient a few days prior to admission. Continue cellulitis worsened. He was admitted and treated with Vancomycin for MRSA cellulitis. This steadily improved. Monitored closely for 2 days as inpatient. Cellulitis continued to improve, small area on induration noted in axilla, with no fluctuance. US obtained which showed solid cystic material no fluid pocket. Continue to monitor no I&D. Pain continued to improve. He was educated and counseled on MRSA. Girlfriend in room upon discharge reported she also had history of MRSA infections needing hospitalization and I &D. Overnight last night, he had explosive diarrhea and vomiting after eating supper. He was noted to be slight tachycardic this am suspected dehydration. Give 1 L NS and VS returned to normal, obtained stool study and revealed Campylobacter positive , negative for Cdiff. He reported on admission he was previously treated for this in July. He now stated that he never truly got better, in his terms, and continued to have diarrhea. I will start Azithromycin and continue for 6 days. He was educated to finish this course and to follow closely with PCP, if he does not improve he needs to be treated longer. He verbalized understanding. He was ambulating drinking well and eating well prior to discharge. He was eager for discharge and felt he would continue to improve upon discharge. He was encouraged to return to ED or clinic quickly if concerns should arise or if nausea vomiting or diarrhea return and he is unable to take medications at home. He verbalized understanding. I did speak with daughter Ledy over the phone regarding her father, he gave permission to speak with her. She was aware of diagnoses and treatment plan upon discharge. - General Info Date of Service: 09/23/19 - Review of Systems General: Reports: No Symptoms. Denies: Fever Pulmonary: Reports: No Symptoms. Denies: Shortness of Breath Cardiovascular: Reports: No Symptoms. Denies: Chest Pain Gastrointestinal: Reports: Diarrhea, Nausea (in am, but improved now and is tolerating diet.). Denies: Abdominal Pain Skin: Reports: No Symptoms Neurological: Reports: No Symptoms Psychiatric: Reports: No Symptoms - Patient Data Vitals - Most Recent: Last Vital Signs Temp 98.6 F 09/23/19 15:09 Pulse 103 H 09/23/19 15:09 Resp 18 09/23/19 15:09 BP 125/74 09/23/19 15:09 Pulse Ox 94 L 09/23/19 15:09 Weight - Most Recent: 66.7 kg I&O - Last 24 hours: Intake & Output 09/23/19 09/23/19 09/23/19 06:59 14:59 22:59 Intake Total 850 250 Output Total 1150 Balance -300 250 Lab Results - Last 24 hrs: Laboratory Results - last 24 hr 09/23/19 09/23/19 Range/Units 04:45 04:45 WBC 8.25 (4.0-11.0) K/uL RBC 5.17 (4.50-5.90) M/uL Hgb 17.2 H (13.0-17.0) g/dL Hct 49.7 (38.0-50.0) % MCV 96.1 (80.0-98.0) fL MCH 33.3 H (27.0-32.0) pg MCHC 34.6 (31.0-37.0) g/dL RDW Std Deviation 52.8 (28.0-62.0) fl RDW Coeff of Jaylon 15 (11.0-15.0) % Plt Count 244 (150-400) K/uL MPV 9.60 (7.40-12.00) fL Neut % (Auto) 87.8 H (48.0-80.0) % Lymph % (Auto) 5.6 L (16.0-40.0) % Forrest % (Auto) 5.9 (0.0-15.0) % Eos % (Auto) 0.6 (0.0-7.0) % Baso % (Auto) 0.1 (0.0-1.5) % Neut # (Auto) 7.2 H (1.4-5.7) K/uL Lymph # (Auto) 0.5 L (0.6-2.4) K/uL Forrest # (Auto) 0.5 (0.0-0.8) K/uL Eos # (Auto) 0.1 (0.0-0.7) K/uL Baso # (Auto) 0.0 (0.0-0.1) K/uL Nucleated RBC % 0.0 /100WBC Nucleated RBCs # 0 K/uL Sodium 138 (136-148) mmol/L Potassium 4.2 (3.5-5.1) mmol/L Chloride 104 (98-107) mmol/L Carbon Dioxide 20.0 L (21.0-32.0) mmol/L BUN 16 (7.0-18.0) mg/dL Creatinine 1.0 (0.8-1.3) mg/dL Est Cr Clr Drug Dosing 68.33 mL/min Estimated GFR (MDRD) > 60.0 ml/min Glucose 174 H (74-106) mg/dL Calcium 9.2 (8.5-10.1) mg/dL KATEY Results - Last 24 hrs: Microbiology 09/20/19 14:42 Aerobic Blood Culture - Preliminary Blood - Venous - Lab Draw NO GROWTH AFTER 3 DAYS Anaerobic Blood Culture - Preliminary NO GROWTH AFTER 3 DAYS 09/20/19 14:34 Aerobic Blood Culture - Preliminary Blood - Venous NO GROWTH AFTER 3 DAYS Anaerobic Blood Culture - Preliminary NO GROWTH AFTER 3 DAYS 09/23/19 11:45 Campylobacter Antigen Assay - Final Stool / Feces Positive Campylobacter Ag C. difficile Antigen & Toxins A,B - Final Med Orders - Current: Current Medications Acetaminophen (Tylenol) 650 mg PO Q4H PRN PRN Reason: Pain (Mild 1-3)/fever Last Admin: 09/20/19 19:52 Dose: 650 mg Azithromycin (Zithromax) 500 mg PO Q24H [facility] Last Admin: 09/23/19 15:08 Dose: 500 mg Diphenhydramine HCl (Benadryl) 25 mg PO Q6H PRN PRN Reason: Itching Last Admin: 09/22/19 23:33 Dose: 25 mg Fluticasone Propionate (Flonase) 0 gm NASBOTH DAILY [facility] Last Admin: 09/23/19 09:14 Dose: 1 spray Folic Acid (Folic Acid) 1 mg PO BEDTIME [facility] Last Admin: 09/22/19 21:16 Dose: 1 mg Vancomycin HCl 1.25 gm/ Sodium (Chloride) 250 mls @ 250 mls/hr IV Q12H [facility] Last Admin: 09/23/19 04:31 Dose: 250 mls/hr Lorazepam (Ativan) 0 mg PO Q4H PRN; Protocol PRN Reason: CIWAA Lorazepam (Ativan) 0 mg IVPUSH Q4H PRN; Protocol PRN Reason: CIWAA Nicotine (Habitrol) 21 mg TRDERM DAILY [facility] Last Admin: 09/23/19 09:14 Dose: 21 mg Ondansetron HCl (Zofran) 4 mg IVPUSH Q4H PRN PRN Reason: Nausea Last Admin: 09/23/19 04:48 Dose: 4 mg Oxycodone HCl (Oxycodone) 5 mg PO Q4H PRN PRN Reason: Pain (moderate 4-6) Last Admin: 09/22/19 23:33 Dose: 5 mg Sodium Chloride (Saline Flush) 2.5 ml FLUSH ASDIRECTED PRN PRN Reason: Keep Vein Open Thiamine HCl (Vitamin B-1) 100 mg PO BEDTIME [facility] Last Admin: 09/22/19 21:16 Dose: 100 mg Discontinued Medications Diphenhydramine HCl (Benadryl) 25 mg PO ONETIME ONE Stop: 09/21/19 00:26 Last Admin: 09/21/19 00:39 Dose: 25 mg Vancomycin HCl 1 gm/ Sodium (Chloride) 250 mls @ 250 mls/hr IV Q12H [facility] Last Admin: 09/20/19 16:31 Dose: Not Given Sodium Chloride (Normal Saline) 1,000 mls @ 999 mls/hr IV .Bolus ONE Stop: 09/23/19 10:05 Last Admin: 09/23/19 09:42 Dose: 999 mls/hr Vancomycin HCl (Pharmacy To Dose - Vancomycin) 1 dose .XX ASDIRECTED HECTOR - Exam General: Reports: Alert, Oriented Lungs: Reports: Clear to Auscultation, Normal Respiratory Effort Cardiovascular: Reports: Regular Rate, Regular Rhythm Wound/Incisions: Reports: Erythema Improving (To R axilla continues to improve, no fluctuance noted and some dryness noted. ) Psy/Mental Status: Reports: Alert, Normal Affect, Normal Mood
== END 2019-09-23 17:00 | disposition home or self-care (01) | DRG 383 ==
LOC: MW.MS 14:04
PROVIDERS: ADMIT Student in an Organized Health Care Education/Training Program; ATTEND Student in an Organized Health Care Education/Training Program
DX: L03.111 Cellulitis of right axilla (principal); L02.411 Cutaneous abscess of right axilla; B95.62 Methicillin resistant Staphylococcus aureus infection as the cause of diseases classified elsewhere; R00.0 Tachycardia, unspecified; E86.0 Dehydration; R19.7 Diarrhea, unspecified; B96.81 Helicobacter pylori [H. pylori] as the cause of diseases classified elsewhere; H54.7 Unspecified visual loss; M54.9 Dorsalgia, unspecified; G89.29 Other chronic pain; M19.90 Unspecified osteoarthritis, unspecified site; F17.210 Nicotine dependence, cigarettes, uncomplicated; Z90.89 Acquired absence of other organs; Z98.52 Vasectomy status; Z90.49 Acquired absence of other specified parts of digestive tract; Z79.899 Other long term (current) drug therapy
CPT/HCPCS: 36415; 73030-26-RT; 73030-RT; 76882; 76882-26; 80048; 80053; 80202; 83036; 83605; 85025; 87040; 87046; 87324; 87899; A9270-GY; J2405; J3370; J7030; J7050

== ENCOUNTER 2021-02-25 12:08 | Emergency (ER) | payer BC ==
[2021-02-25] MEDS ORDERED: Bacitracin Oint 1 GM U/D Packet TOP ONE (12:32)
[2021-02-25] MEDS ORDERED: Amoxicillin/Clavulanate K 875-125 MG Tab PO ONE (12:32)
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
[2021-02-25 12:57] VITALS: BP 137/90; PULSE 92
== END 2021-02-25 12:55 | disposition home or self-care (01) ==
LOC: MW.ED 12:08
DX: S51.852A Open bite of left forearm, initial encounter (principal); Y04.1XXA Assault by human bite, initial encounter
CPT/HCPCS: 99283; A9270

== ENCOUNTER 2022-02-01 10:40 | Emergency (ER) | payer BC ==
[2022-02-01] MEDS ORDERED: methylPREDNISolone Sodium Succinate 125 MG/2 ML SDV IM ONE (11:17)
[2022-02-01] MEDS ORDERED: Acetaminophen/oxyCODONE 325-5 MG Tab PO ONE (12:47)
== END 2022-02-01 13:47 | disposition home or self-care (01) ==
LOC: MW.ED 10:40
DX: M54.12 Radiculopathy, cervical region (principal); M19.90 Unspecified osteoarthritis, unspecified site; Z79.899 Other long term (current) drug therapy
CPT/HCPCS: 72125; 93005; 96372; 99284; A9270; J2930; J3360; 93010